=== PATIENT | male | born 1985 | race Caucasian/White ===

== ENCOUNTER 2017-03-26 11:19 | Inpatient (IN) | payer OTHER ==
[~2017-03-26] VITALS: Ht 167.6 cm; Wt 98.4 kg
--- NOTE | 2017-03-26 13:00 | NUR ---
RN MS NOTES RECEIVED PATIENT FROM HOME, ALERT AND ORIENTED X4, BREATHING EVEN AND UNLABORED, NO DISTRESS, NO COMPLAINT OF PAIN, PATIENT IS UNDER THE CARE OF DR. ZEE, ADMITTING DIAGNOSIS IS SCHIZOPRENIA, ADMISSION ORDERS RECEIVED AND CARRIED OUT, PATIENT SMOKES AND GIVEN SCHEDULE FOR SMOKING, NEEDS ATTENDED AND MET, CALL LIGHT WITHIN REACH, WILL CONTINUE TO MONITOR.
[2017-03-26] MEDS ORDERED: MAGNESIUM HYDROXIDE 30 ML UDC PO PRN (14:00)
[2017-03-26] MEDS ORDERED: IBUPROFEN 200 MG TABLET PO PRN (14:00)
[2017-03-26] MEDS ORDERED: LORAZEPAM 1 MG TABLET FOR AGITATION PO PRN (14:00)
[2017-03-26] MEDS ORDERED: MAG HYDROX/AL HYDROX/SIMETH 30 ML UDC PO PRN (14:00)
[2017-03-26] MEDS ORDERED: ZOLPIDEM TARTRATE 10 MG TABLET PO PRN (14:30)
--- NOTE | 2017-03-26 18:11 | NUR ---
RN MS NOTES PATIENT SEEN BY DR. ZEE, NO NEW ORDER AT THIS TIME, PATIENT NOT IN ANY ACUTE DISTRESS, NO COMPLAINT OF PAIN AT THIS TIME, TAKE SMOKE BREAKS AT SCHEDULED TIMES, ALL NEEDS ATTENDED AND MET, CALL LIGHT WITHIN REACH, WILL ENDORSE TO EVENT ORGANIZER FOR KIRIT.
--- NOTE | 2017-03-26 19:30 | NUR ---
MS MIGUEL NOTES RECEIVED A/O X4,AMBULATORY,ON CLINICAL STUDY FOR SCHIZOPHRENIA.CALM FOLLOW INSTRUCTIONS.WILL CONTINUE TO MONITOR BEHAVIOR.
[2017-03-26 20:00] VITALS: BP 130/81
--- NOTE | 2017-03-26 21:30 | NUR ---
MS RN NOTES WENT DOWN TO SMOKE ACCOMPANIED BY AMAN GARVIN
[2017-03-26] MEDS ORDERED: LORAZEPAM 1 MG TABLET FOR INSOMNIA PO PRN (22:00)
[2017-03-26] MEDS ORDERED: risperiDONE 1 MG TABLET PO ONE (22:00)
--- NOTE | 2017-03-26 22:00 | NUR ---
MS RN NOTES DUE PO MEDS ADMINISTERED
--- NOTE | 2017-03-27 05:52 | NUR ---
MS RN NOTES NO BEHAVIORAL PROBLEM NOTED,CALM,FOLLOW INSTRUCTION,MED COMPLIANT.WILL CONTINUE TO FOLLOW ON CLINICAL STUDY PROGRAM.WILL ENDORSE TO DAY NURSE FOR KIRIT.
--- NOTE | 2017-03-27 07:10 | NUR ---
RN MS NOTES PATIENT ALERT AND ORIENTED, CALM AND COOPERATIVE, NO DISTRESS NOR PAIN NOTED, NEEDS ATTENDED, WILL CONTINUE TO MONITOR.
[2017-03-27 08:00] VITALS: BP 124/79
[2017-03-27 16:00] VITALS: BP 121/81
--- NOTE | 2017-03-27 19:00 | NUR ---
MS RN NOTES WENT DOWN TO SMOKE WITH U/S BRISEYDA.CALM, FOLLOW COMMANDS.
--- NOTE | 2017-03-27 19:05 | NUR ---
RN MS NOTES NO S/SX OF DISTRESS NOTED, KEPT ASKING FOR SMOKE BREAKS, ENCOURAGED PATIENT TO ADHERE WITH THE SCHEDULE.
[2017-03-27 19:44] VITALS: BP 137/82
[2017-03-27 20:00] VITALS: BP 137/82
--- NOTE | 2017-03-27 21:30 | NUR ---
MS RN NOTES WENT DOWN TO SMOKE ACCOMPANIED BY AMAN GOLD
--- NOTE | 2017-03-27 22:00 | NUR ---
MS RN NOTES DUE RISPERDAL 1.5MG PO GIVEN
[2017-03-27] MEDS: risperiDONE 1 MG TABLET PO SCH (22:03)
--- NOTE | 2017-03-28 06:16 | NUR ---
MS RN NOTES NO CHANGE IN BEHAVIOR,CALM,FOLLOW COMMANDS.IN NO ACUTE DISTRESS.ENDORSE TO DAY NURSE FOR KIRIT.
[2017-03-28 08:00] VITALS: BP 121/79
--- NOTE | 2017-03-28 08:00 | NUR ---
MS RN NOTES PATIENT IN BED RESTING NO SOB OR ACUTE DISTRESS NOTED. PERIPHERAL IV INTACT. BED IN LOW LOCKED POSITION. BED IN LOW LOCKED POSITION. WILL CONTINUE TO MONITOR.
--- NOTE | 2017-03-28 10:00 | NUR ---
MS RN NOTES NOTED PATIENTS ROOM SMELLED OF MARIJUANA DR. ZEE MADE AWARE STATES TO NOTIFIED PATIENT IF LAB RESULTS TEST POSITIVE OF MARIJUANA HE WILL BE DISCHARGED FROM THE STUDY. PATIENT INFORMED. ALSO EDUCATED OF THE DANGER OF SMOKING IN A HOSPITAL. STATES HE DID NOT SMOKE. WILL CONTINUE TO MONITOR.
[2017-03-28 16:00] VITALS: BP 124/81
--- NOTE | 2017-03-28 18:00 | NUR ---
MS RN NOTES PATIENT SEEN AND EVALUATED BY DR. ZEE. ORDERS NOTED AND CARRIED OUT.
--- NOTE | 2017-03-28 19:35 | NUR ---
MS RN NOTES A/O X4,AMBULATORY,FOLLOW INSTRUCTIONS
[2017-03-28 20:00] VITALS: BP 129/90
[2017-03-28 20:20] VITALS: BP 129/90
--- NOTE | 2017-03-28 20:30 | NUR ---
MS RN NOTES WENT DOWN TO SMOKE ACCOMPANIED BY AMAN Thompson
--- NOTE | 2017-03-28 21:30 | NUR ---
MS RN NOTES WENT DOWN TO SMOKE ACCOMPANIED BY AMAN Thompson
[2017-03-28] MEDS: risperiDONE 1 MG TABLET PO SCH (22:00)
--- NOTE | 2017-03-28 22:00 | NUR ---
MS RN NOTES DUE RISPERDAL 1.5MG PO GIVEN SCHEDULED.
--- NOTE | 2017-03-28 22:16 | NUR ---
MS RN NOTES REMAINS CALM,FOLLOW INSTRUCTION.REPORT GIVEN TO ANGEL MIGUEL FOR KIRIT.
--- NOTE | 2017-03-28 22:17 | NUR ---
MS MIGUEL INITIAL NOTE PT RECEIVED IN BED, A/O X 4, NO S/S OF RESPIRATORY DISTRESS OR SOB. SAFE ENVIRONMENT PROVIDED FREE OF CLUTTERS. IV SITE INTACT WITH NO S/S OF INFILTRATION NOTED.BED IN LOCKED, LOW POSITION. CALL LIGHT WITHIN EASY REACH. WILL CONTINUE TO MONITOR. Addendum: 03/29/17 at 0642 by ANGEL MCCLOUD RN ADDENDUM: MISTAKEN ENTRY REGARDING IV SITE, NO IV SITE WAS INTACT
--- NOTE | 2017-03-29 06:45 | NUR ---
MS RN CLOSING NOTES PATIENT COMFORTABLY ASLEEP AND EASILY AWAKEN, TOLERATING ROOM AIR 02 SAT 98% R.A, NO BEHAVIORAL ISSUES NOTED. NO A/R NOTED FROM PSYCH MEDS, PATIENT SLEPT TOTAL OF 7 HOURS AT NIGHT. NO AKATHISIA, NO TREMORS, NO EPS, NO MEDICAL AND PSYCHIATRIC INSTABILITY NOTED. RESPIRATIONS EVEN AND UNLABORED. LUNG SOUNDS CLEAR UPON AUSCULTATION, NO S/S OF ACUTE DISTRESS, NO SOB, NO COUGH, NO CONGESTION, SKIN WARM AND DRY TO TOUCH, AFEBRILE, ALL NURSING CARE NEEDS PROVIDED AND RENDERED, NEEDS ATTENDED AND ANTICIPATED, KEPT CLEAN AND DRY AND COMFORTABLE,GOOD SKIN CARE PROVIDED. FREQUENT VISUAL CHECK DONE FOR SAFETY EVERY 2 HOURS. SAFE HAZARD FREE ENVIRONMENT PROVIDED. CALL LIGHT WITHIN EASY TO REACH, ON LOW BED AT ALL TIMES TO ENSURE SAFETY, WILL ENDORSE TO THE NEXT SHIFT CONTINUE PLAN OF CARE.
--- NOTE | 2017-03-29 07:36 | NUR ---
MS RN NOTES RECEIVED PATIENT IN ROOM, PERFORMING SELF HYGIENE, AMBULATORY, INDEPENDENT. APPEARS CALMS AND RESTFUL. NOT IN ANY FORM OF DISTRESS, ON ROOM AIR. NO COMPLAINTS OF DISCOMFORT/PAIN. SAFETY MEASURES RENDERED. PATIENT VERBALIZED TO BE A SMOKER AND TAKES FREQUENT SMOKE BREAKS. CALL LIGHT WITHIN EASY TO REACH. WILL CONTINUE TO MONITOR.
[2017-03-29 08:00] VITALS: BP_SYST 123; BP_SYST 125; BP_DIAS 75
--- NOTE | 2017-03-29 11:53 | NUR ---
MS/RN NOTES PATIENT TAKEN DOWN FOR A SMOKE BREAK BY LIMO DRIVER.
[2017-03-29 16:00] VITALS: BP 135/88
--- NOTE | 2017-03-29 18:12 | NUR ---
MS/RN NOTES PATIENT SITTING IN ROOM, STABLE, NOT IN ANY FORM OF DISTRESS. NO BEHAVIORAL DISTURBANCES NOTED, NO PSYCH ISSUES FOUND DURING SHIFT. PATIENT ABLE TO CARRY OUT NORMAL CONVERSATION , FREQUENTLY ASKS TO GO DOWN FOR A SMOKE BREAK. WILL ENDORSE CARE TO FENCE MAKER FOR KIRIT.
--- NOTE | 2017-03-29 19:30 | NUR ---
RN NOTES RECEIVED PT AWAKE ON BED, A/OX4, CALM AND FOLLOWS COMMANDS
[2017-03-29 20:00] VITALS: BP 140/86
[2017-03-29] MEDS: risperiDONE 1 MG TABLET PO SCH (22:09)
--- NOTE | 2017-03-30 06:36 | NUR ---
RN NOTES SLEEPING BUT AROUSABLE, CALM, AND FOLLOW INSTRUCTION, PT NEEDS ATTENDED
--- NOTE | 2017-03-30 07:42 | NUR ---
MS/RN NOTES RESTING IN BED COMFORTABLY, AWAKE AND ORIENTED X4, AMBULATORY, INDEPENDENT WITH SELF CARE. NO FORM OF DISTRESS NOTED NOTED, NO COMPLAINTS OF PAIN, ANXIETY OR DISCOMFORT AT THIS TIME. PATIENT ASKED WHEN HE CAN BE TAKEN FOR SMOKE BREAK. INSTRUCTED HIM THE SCHEDULED TIMES OF SMOKE BREAK. SAFETY MEASURES TAKEN. WILL CONTINUE TO MONITOR.
[2017-03-30 08:00] VITALS: BP 112/76
--- NOTE | 2017-03-30 11:45 | NUR ---
MS/RN NOTES PATIENT WAS TAKEN DOWN FOR SMOKE BREAK
--- NOTE | 2017-03-30 18:48 | NUR ---
MS/RN NOTES PATIENT STABLE, NO CHANGES IN CONDITION OR BEHAVIOR. COMPLIANT HOWEVER FREQUENTLY ASKS TO GO FOR SMOKE BREAK AND PACES THROUGH THE [address]. NO PSYCH ISSUES FOUND DURING SHIFT, ABLE TO CARRY NORMAL CONVERSATION. WILL ENDORSE CARE TO CORNER BRACE BLOCK MACHINE OPERATOR FOR KIRIT
--- NOTE | 2017-03-30 19:30 | NUR ---
MS RN INITIAL NOTE PT IS STABLE AND COMFORTABLE, NO COMPLAINT OF PAIN OR RESPIRATORY DISTRESS NOTED DURING PHYSICAL ASSESSMENT, WILL MONITOR AND ATTEND TO NEEDS PROMPTLY.
[2017-03-30] MEDS: risperiDONE 1 MG TABLET PO SCH (22:07)
[2017-03-30 22:28] VITALS: BP 125/78
--- NOTE | 2017-03-31 06:20 | NUR ---
MS RN CLOSING NOTE PT REMAINED STABLE DURING PIPEFITTER, NO SIGNIFICANT CHANGE IN CONDITION NOTED, WILL ENDORSE TO INCOMING NURSE FOR KIRIT.
--- NOTE | 2017-03-31 07:23 | NUR ---
MS RN OPENING RECEIVED PATIENT A/OX4 DENIES PAIN, SOB, DIFFICULTY BREATHING. CALL LIGHT IN REACH, BED LOWERED AND LOCKED, ALL NEEDS MET. WILL ROUND Q2H OR LESS PER NEEDS.
[2017-03-31 08:00] VITALS: BP 111/73
[2017-03-31 08:11] VITALS: BP 111/73
[2017-03-31 16:00] VITALS: BP 127/79
--- NOTE | 2017-03-31 19:10 | NUR ---
MS RN CLOSING PATIENT STABLE NO COMPLICATIONS NO CHANGES. ALL NEEDS MET. CARE ENDORSED TO RN FOR KIRIT
--- NOTE | 2017-03-31 19:30 | NUR ---
MS RN INITIAL NOTE RECEIVED PT AWAKE AND ALERT, ORIENTED X4, NO COMPLAINT OF PAIN OR ANY RESPIRATORY DISTRESS NOTED DURING PHYSICAL ASSESSMENT, PT IS AMBULATORY WITH A STEADY GAIT, SAFETY MEASURES WILL BE KEPT AT ALL TIMES, AND NEEDS WILL BE ATTENDED TO PROMPTLY.
[2017-03-31 20:00] VITALS: BP 150/87
--- NOTE | 2017-04-01 07:25 | NUR ---
MS RN CLOSING NOTE PT REMAINED STABLE, NO SIGNIFICANT CHANGE IN CONDITION NOTED DURING NIGHT, WILL ENDORSE TO INCOMING NURSE FOR KIRIT.
[2017-04-01 08:00] VITALS: BP_SYST 114; BP_SYST 121; BP_DIAS 65; BP_DIAS 77
--- NOTE | 2017-04-01 08:00 | NUR ---
AM RN NOTE Received patient awake, A/O X4 verbally responsive able to make needs known. Denies any pain or discomfort at this time. Will continue to monitor.
[2017-04-01] MEDS: INVEST MED MK-8189 MISC 1 CAP EA PO SCH ×2 (10:00→10:45)
[2017-04-01] MEDS: INVEST MED MK-8189 MISC 1 TAB EA PO SCH ×2 (10:00→10:45)
--- NOTE | 2017-04-01 10:06 | NUR ---
AM RN NOTE Investigational medication not administer today because pt received dose in clinic already per Bebe Pharmacist.
--- NOTE | 2017-04-01 10:46 | NUR ---
AM RN NOTE Medication brought from Dr. Javier office and given to patient.
[2017-04-01] MEDS ORDERED: LORAZEPAM 1 MG TABLET FOR AGITATION PO PRN (12:00)
--- NOTE | 2017-04-01 18:38 | NUR ---
AM RN NOTE Patient complaint with medication, no acute distress noted. Will endorse care to next shift.
--- NOTE | 2017-04-01 19:50 | NUR ---
MS RN NOTE: PATIENT RESTING IN BED, NO ACUTE DISTRESS NOTED. BREATHING EVEN AND UNLABORED, NO SOB NOTED. PATIENT CALM AND COOPERATIVE. BED LOCKED AND IN LOWEST POSITION, CALL LIGHT IN REACH. WILL CONTINUE TO MONITOR.
[2017-04-01 20:10] VITALS: BP 131/70
--- NOTE | 2017-04-01 21:30 | NUR ---
MS RN NOTE: PATIENT REQUEST FOR ATIVAN TO HELP SLEEP. ATIVAN 1MG ORAL GIVEN PER MD ORDER. WILL CONTINUE TO MONITOR.
[2017-04-01] MEDS ORDERED: LORAZEPAM 1 MG TABLET FOR INSOMNIA PO PRN (22:00)
--- NOTE | 2017-04-02 06:44 | NUR ---
MS RN NOTE: PATIENT RESTING IN BED, NO ACUTE DISTRESS NOTED. BREATHING EVEN AND UNLABORED, NO SOB NOTED. PATIENT CALM AND COOPERATIVE. PATIENT SLEPT AT LEAST 7 HOURS. BED LOCKED AND IN LOWEST POSITION, CALL LIGHT IN REACH. WILL ENDORSE TO DAY NURSE TO CONTINUE WITH PLAN OF CARE.
[2017-04-02 08:00] VITALS: BP 109/69
--- NOTE | 2017-04-02 08:45 | NUR ---
MS RN NOTES CALLED PHARMACY TO HAVE MEDICATIONS BROUGHT UP FOR PATIENT
--- NOTE | 2017-04-02 09:20 | NUR ---
MS RN NOTES 2ND CALL TO PHARMACY TO BRING MEDICATION FOR PATIENT
--- NOTE | 2017-04-02 09:51 | NUR ---
MS RN NOTES 3RD CALL TO PHARMACY TO BRING MEDICATION FOR PATIENT
[2017-04-02] MEDS: INVEST MED MK-8189 MISC 1 TAB EA PO SCH (09:57)
[2017-04-02] MEDS: INVEST MED MK-8189 MISC 1 CAP EA PO SCH (09:57)
[2017-04-02 10:00] VITALS: BP 109/69
[2017-04-02 16:00] VITALS: BP 127/75
--- NOTE | 2017-04-02 18:42 | NUR ---
MS RN CLOSING PATIENT STABLE NO COMPLICATIONS NO CHANGES. ALL DUE MEDS GIVEN AND ALL NEEDS MET. CARE WILL BE ENDORSED TO LAMONT SEARS FOR KIRIT.
--- NOTE | 2017-04-02 19:36 | NUR ---
RN NOTE; RECEIVED PT IN BED AWAKE AND ALERT. BREATHING EVENLY. NO SOB. NAD. NO BEHAVIORAL ISSUES. CALL LIGHT WITHIN REACH. WILL CONT TO MONITOR
[2017-04-02 20:00] VITALS: BP_SYST 121; BP_SYST 131; BP_DIAS 68
--- NOTE | 2017-04-03 06:21 | NUR ---
RN NOTE; PT IN BED SLEEPING, AROUSES EASILY. BREATHING EVENLY. NO ACUTE EVENT DURING THE NIGHT. TRIAL MED TOLERATED WELL. W/ NO COMPLICATIONS OR A/R. NO BEHAVIORAL OR PSYCH ISSUES DURING THE NIGHT. HAD A GOOD NIGHT SLEEP W/ NO C/O DISCOMFORT. WILL CONT TO MONITOR AND WILL ENDORSE TO AM SHIFT FOR KIRIT.
[2017-04-03 08:00] VITALS: BP 100/54
[2017-04-03 08:09] VITALS: BP 100/54
[2017-04-03] MEDS: INVEST MED MK-8189 MISC 1 TAB EA PO SCH (09:40)
[2017-04-03] MEDS: INVEST MED MK-8189 MISC 1 CAP EA PO SCH (09:40)
[2017-04-03 16:00] VITALS: BP 128/72
--- NOTE | 2017-04-03 19:01 | NUR ---
MS RN CLOSING PATIENT STABLE NO COMPLICATIONS NO CHANGES. ALL DUE MEDS GIVEN AND ALL NEEDS MET. CARE WILL BE ENDORSED TO LAMONT SEARS FOR KIRIT.
[2017-04-03 20:00] VITALS: BP 135/75
--- NOTE | 2017-04-03 20:00 | NUR ---
PATIENT UP ON THE CHAIR, ALERT AND ORIENTED X4, INTERACTING WITH ROOM MATE, NO SOB, DENIES ANY PAIN AT THIS TIME, DENIES SUICIDAL IDEATION, EATING, AWARE OF SMOKING SCHEDULE, KEPT SAFE AND COMFORTABLE, CALL LIGHT WITHIN REACH.
[2017-04-03 22:00] VITALS: BP 135/75
--- NOTE | 2017-04-04 06:51 | NUR ---
PATIENT IN BED, ALERT AND AWAKE, NO SOB, NO RESPIRATORY DISTRESS, NO COMPLAIN OF PAIN, NO BEHAVIOR DISTURBANCE DURING SHIFT, SLEPT FOR 8 HOURS, KEPT SAFE AND COMFORTABLE, CALL LIGHT WITHIN REACH.
[2017-04-04 08:00] VITALS: BP 114/63
--- NOTE | 2017-04-04 08:00 | NUR ---
RN OPENING NOTES RECEIVED PATIENT ON BED, SLEEPING. RESPIRATIONS EVEN AND UNLABORED. NO ACUTE DISTRESS NOTED. BED IN LOWEST POSITION, CALL LIGHT WITHIN REACH. WILL CONTINUE TO MONITOR.
[2017-04-04] MEDS: INVEST MED MK-8189 MISC 2 CAP EA PO SCH (09:47)
[2017-04-04] MEDS: INVEST MED MK-8189 MISC 2 TAB EA PO SCH (09:47)
--- NOTE | 2017-04-04 11:20 | NUR ---
PT INSISTED TO GO OUTSIDE WITH FAMILY AND STATED THAT DR ZEE ALLOWED THEM TO HANG OUT WITH THE FAMILY AND EVEN SMOKE WITH THE FAMILY OUTSIDE AND STATED THAT DR ZEE STATED FOR THE HOSPITAL STAFF TO CALL HIM FOR ANY QUESTIONS.INSTRUCTED THEM TO WAIT TILL I CLARIFY WITH DR ZEE BUT THE PT ALREADY LEFT WITH ANOTHER CLINICAL TRIAL ROOMATE, [address]ED [address] ZEE OFFICE AND SPOKE TO LEONEL,DIRECTOR OF DR ZEE OFFICE AND STATED THAT IT'S OK ACCORDING TO DR ZEE.QUESTIONED LEONEL ASKING WHAT IF THE PT TAKES MEDICATIONS OR DRUGS FROM OUTSIDE BROUGHT IN BY FAMILY,LEONEL STATED THAT IT'S OK WITH DR ZEE TO HAVE THE PT HANG OUT WITH THE FAMILY OUTSIDE EVEN IF THEY DROVE OUT TO GO TO [place] [facility] THEY ARE ACCOMPANIED BY THE FAMILY.QUESTIONED LEONEL IF THE PT CAN SMOKE WITH THE FAMILY OUTSIDE.LEONEL STATED THAT SHE WILL CLARIFY WITH DR ZEE ABOUT THE SMOKING. Addendum: 04/04/17 at 1341 by STEPHANIE MORA RN PT LEFT WITH HIS ROOMATE 308-[address]RI[address] MATT AND NOT [address] LEONG TO GO OUTSIDE AND WENT INSIDE THE CAR WITH HIS FRIENDS/FAMILY.SECURITY CALLED AND REPORTED TO US.
--- NOTE | 2017-04-04 11:50 | NUR ---
PT CAME BACK FROM HANGING OUTSIDE WITH FAMILY AND FRIENDS
--- NOTE | 2017-04-04 13:53 | NUR ---
PT INSISTS TO GO OUT TO SMOKE EVEN IF INSTRUCTED THAT THEY NEED TO FOLLOW THE SMOKING REGULATIONS TIME SINCE OUR MANAGER APPOINTMENT IS TAKING HER BREAK.PT INSISTS THAT DR ZEE TOLD THEM "IT'S OK TO SMOKE WITHOUT BEING ACCOMPANIED BY THE MANAGER APPOINTMENT ACCORDING TO DR ZEE"PAGED DR ZEE.AWAITING TO RETURN CALL
--- NOTE | 2017-04-04 13:58 | NUR ---
PT WENT OUT TO SMOKE WITH FAMILY OUTSIDE INSPITE OF TELLING HIM TO WAIT TILL CLARIFIED WITH DR ZEE.
--- NOTE | 2017-04-04 15:04 | NUR ---
CHECKED ON PT IN HIS ROOM AND HE'S LYING IN BED AND INSTRUCTED HIM THAT I SPOKE TO LEONEL AND EXPLAINED THE HOSPITAL REGULATIONS.PT STATED THAT HE ALREADY SPOKE TO LEONEL AWHILE AGO AND IS AWARE OF IT.LEONEL,DIRECTOR OF DR ZEE'S OFFICE STATED THAT SHE DOESN'T KNOW THE HOSPITAL REGULATIONS.
[2017-04-04 16:00] VITALS: BP 143/78
--- NOTE | 2017-04-04 18:33 | NUR ---
RN CLOSING NOTES PATIENT ON BED RESTING, AWAKE AND ALERT. RESPIRATIONS EVEN AND UNLABORED. NO ACUTE DISTRESS NOTED. NO CHANGE OF CONDITION. ALL NEEDS ATTENDED AND PROVIDED. CALL LIGHT WITHIN REACH. WILL ENDORSE TO FLAGSTONE LAYER RN FOR CONTINUITY OF CARE.
--- NOTE | 2017-04-04 19:30 | NUR ---
MSRN FULLY AWAKE, PATIENT ON THE PHONE, NO NEEDS MADE FOR NOW. TO CONTINUE.
[2017-04-04 20:00] VITALS: BP 141/80
--- NOTE | 2017-04-04 21:30 | NUR ---
MSRN WENT FOR SMOKE WITH ROOMATE AND APPLICATION ARCHITECT. BEHAVIOR ACCEPTABLE.
[2017-04-04 22:48] VITALS: BP 141/80
--- NOTE | 2017-04-04 23:00 | NUR ---
MSRN SEEN ASLEEP, APPEARS COMFORTABLE.
[2017-04-05 08:00] VITALS: BP 107/65
--- NOTE | 2017-04-05 08:03 | NUR ---
RN OPENING NOTES RECEIVED PATIENT ON BED AWAKE ASKING FOR BREAKFAST. BREAKFAST TRAY GIVEN. NO ACUTE DISTRESS, NO SOB. BED IN LOWEST POSITION, CALL LIGHT IN REACH. WILL CONTINUE TO MONITOR
[2017-04-05] MEDS: INVEST MED MK-8189 MISC 2 TAB EA PO SCH (09:15)
[2017-04-05] MEDS: INVEST MED MK-8189 MISC 2 CAP EA PO SCH (09:15)
[2017-04-05 16:00] VITALS: BP 121/70
--- NOTE | 2017-04-05 19:15 | NUR ---
RN CLOSING NOTES PATIENT ON BED RESTING. NO ACUTE DISTRESS NOTED. NO CHANGE OF CONDITION. ALL NEEDS ATTENDED AND PROVIDED. KEPT PATIENT SAFE. BED IN LOWEST POSITION, CALL LIGHT WITHIN REACH. ENDORSED TO HEARTH FEEDER RN FOR CONTINUITY OF CARE.
[2017-04-05 20:00] VITALS: BP 128/76
--- NOTE | 2017-04-05 20:00 | NUR ---
PATIENT IN BED, WATCHING TV, NO SOB, CALM, NO DISTRESS, DENIES ANY PAIN AT THIS TIME, HEARING VOICES, TRYING TO IGNORE THEM, AT TIMES VOICES ARE TELLING HIM BAD THINGS, PATIENT DECLINED TO ELABORATE. KEPT SAFE AND COMFORTABLE, CALL LIGHT WITHIN REACH.
--- NOTE | 2017-04-06 07:05 | NUR ---
PATIENT IS ALERT AND AWAKE, NO SOB, NO RESPIRATORY DISTRESS, NO BEHAVIOR DISTURBANCE DURING SHIFT, SLEPT FOR 8.5 HOURS, NEEDS ATTENDED, CALL LIGHT WITHIN REACH.
--- NOTE | 2017-04-06 07:26 | NUR ---
MS RN OPENING RECEIVED PATIENT A/OX4 AWAKE DENIES SOB, DIFFICULTY BREATHING OR PAIN. PATIENT STATES NO NEEDS AT THIS TIME. CALL LIGHT IN REACH, BED LOWERED AND LOCKED, RAILS UPX3 FOR SAFETY AND WILL ROUND Q2H OR LESS PER NEEDS.
[2017-04-06 08:00] VITALS: BP 123/86
[2017-04-06] MEDS: INVEST MED MK-8189 MISC 2 CAP EA PO SCH (09:10)
[2017-04-06] MEDS: INVEST MED MK-8189 MISC 2 TAB EA PO SCH (09:10)
[2017-04-06 15:58] VITALS: BP 126/71
[2017-04-06 16:00] VITALS: BP 126/71
--- NOTE | 2017-04-06 18:33 | NUR ---
MS RN CLOSING PATIENT STABLE NO COMPLICATIONS NO CHANGES. ALL DUE MEDS GIVEN AND ALL NEEDS MET. CARE WILL BE ENDORSED TO LAMONT SEARS FOR KIRIT.
[2017-04-06 20:00] VITALS: BP 128/77
--- NOTE | 2017-04-07 06:37 | NUR ---
MS RN NOTES AWAKE & RESPONSIVE. NOT IN ANY DISTRESS. NO SOB NOTED. DENIES ANY PAIN OR DISCOMFORT AT THIS TIME. MONITORED ACCORDINGLY. 8 HRS OF SLEEP. CALL LIGHT WITHIN REACH. BED IN LOWEST POSITION. SR UP X 2 FOR SAFETY. WILL ENDORSE TO NEXT SHIFT.
[2017-04-07 08:00] VITALS: BP_SYST 114; BP_SYST 118; BP_DIAS 74
[2017-04-07] MEDS: INVEST MED MK-8189 MISC 3 TAB EA PO SCH (09:38)
[2017-04-07] MEDS: INVEST MED MK-8189 MISC 3 CAP EA PO SCH (09:38)
[2017-04-07 16:00] VITALS: BP 116/69
[2017-04-07] MEDS: ACETAMINOPHEN ES 500 MG TABLET PO PRN (18:15)
--- NOTE | 2017-04-07 18:29 | NUR ---
MS RN CLOSING PATIENT STABLE NO COMPLICATIONS NO CHANGES. ALL DUE MEDS GIVEN AND ALL NEEDS MET. CARE WILL BE ENDORSED TO LAMONT SEARS FOR KIRIT.
--- NOTE | 2017-04-07 19:45 | NUR ---
MS RN OPENING NOTES: PATIENT CAME FROM SMOKE BREAK, AOX4, AMBULATORY, APPEARS CALM AND IN NO DISTRESS. DENIES ANY PAIN AT THIS TIME. PROVIDED FOR COMFORT AND SAFETY. WILL CONT TO MONITOR.
[2017-04-07 20:00] VITALS: BP 119/70
--- NOTE | 2017-04-08 06:35 | NUR ---
MS RN CLOSING NOTES: PATIENT IN BED, AOX4, ON ROOM AIR, BREATHING EVEN AND UNLABORED. APPEARS CALM AND IN NO DISTRESS. NO VERBALIZATION OF PARANOID, ERRATIC THOUGHTS NOTED FROM PATIENT THROUGH SHIFT. WAS ABLE TO SLEEP FOR 7 HOURS THIS NIGHT. PROVIDED FOR COMFORT AND SAFETY. WILL ENDORSE TO AM RN FOR KIRIT.
--- NOTE | 2017-04-08 07:14 | NUR ---
MS RN OPENING NOTES: PATIENT RECEIVED AWAKE IN BED IN NO ACUTE SIGNS OF DISTRESS. ALERT AND ORIENTED X4, NO C/O PAIN OR DISCOMFORTS VOICED AT THIS TIME. ON ROOM AIR, BREATHING EVEN AND UNLABORED. CALL LIGHT WITHIN REACH. BED LOW AND LOCKED FOR SAFETY. WILL CONTINUE TO MONITOR ACCORDINGLY.
[2017-04-08 08:00] VITALS: BP 115/66
--- NOTE | 2017-04-08 08:31 | NUR ---
RN NOTES PATIENT WENT TO SMOKE WITH FOOD SERVICE REPRESENTATIVE.
[2017-04-08] MEDS: INVEST MED MK-8189 MISC 3 TAB EA PO SCH (08:59)
[2017-04-08] MEDS: INVEST MED MK-8189 MISC 3 CAP EA PO SCH (08:59)
[2017-04-08 16:00] VITALS: BP_SYST 126; BP_SYST 128; BP_DIAS 85
--- NOTE | 2017-04-08 18:44 | NUR ---
MS RN CLOSING NOTES: PATIENT RESTING IN BED ALERT AND ORIENTED X4, NO SIGNIFICANT CHANGES NOTED THROUGHOUT THE DAY. AMBULATORY AND ABLE TO MAKE NEEDS KNOWN. SMOKES AT SCHEDULED TIMES. ON ROOM AIR, BREATHING EVEN AND UNLABORED. CALL LIGHT WITHIN REACH. BED LOW AND LOCKED FOR SAFETY. ALL NEEDS AND CARE ATTENDED WELL. WILL ENDORSED TO MAKEUP SALES ADVISOR FOR CONTINUITY OF CARE.
--- NOTE | 2017-04-08 19:30 | NUR ---
RN NOTE; RECEIVED PT IN BED AWAKE AND ALERT. BREATHING EVENLY. NO DISTRESS. DENIED ANY DISCOMFORT. TRIAL MEDICATION CAITLYN WELL. WILL CONT TO MONITOR.
[2017-04-08 20:00] VITALS: BP 110/56
[2017-04-08 20:19] VITALS: BP 110/56
--- NOTE | 2017-04-09 06:19 | NUR ---
RN NOTE; PT IN BED SLEEPING, AROUSES EASILY. BREATHING EVENLY. NO SOB. NAD. NO ACUTE CHANGES OVER THE NIGHT . NO BEHAVIORAL OR PSYCH ISSUES NOTED. NO PRN MED GIVEN. SLEPT WELL DURING THE NIGHT. CALL LIGHT WITHIN REACH. WILL CONT TO MONITOR AND WILL ENDORSE TO AM SHIFT FOR KIRIT.
[2017-04-09 08:00] VITALS: BP 128/84
[2017-04-09] MEDS: INVEST MED MK-8189 MISC 3 CAP EA PO SCH (08:43)
[2017-04-09] MEDS: INVEST MED MK-8189 MISC 3 TAB EA PO SCH (08:43)
[2017-04-09 16:00] VITALS: BP 126/78
--- NOTE | 2017-04-09 18:34 | NUR ---
MS RN CLOSING PATIENT STABLE NO COMPLICATIONS NO CHANGES. ALL DUE MEDS GIVEN AND ALL NEEDS MET. CARE WILL BE ENDORSED TO LAMONT SEARS FOR KIRIT.
--- NOTE | 2017-04-09 19:20 | NUR ---
RN NOTE; PT AWAKE AND AMBULATORY IN THE HALLWAY. BREATHING EVENLY . NO SOB. NO DISTRESS. NO PSYCH OR BEHAVIORAL ISSUES. WILL CONT TO MONITOR.
[2017-04-09] MEDS: LORAZEPAM 1 MG TABLET FOR AGITATION PO PRN (19:57)
--- NOTE | 2017-04-09 19:58 | NUR ---
ATIVAN 1MG GIVEN PER PT'S REQUEST FOR C/O ANXIETY .WILL CONT TO MONITOR
[2017-04-09 20:00] VITALS: BP 130/86
--- NOTE | 2017-04-10 06:53 | NUR ---
RN NOTE; PT IN BED SLEEPING, BREATHING EVENLY. NO SOB. NAD. NO PSYCH OR BEHAVIORAL ISSUES DURING THE NIGHT . REMAINED STABLE. ASSISTED W/ ADLS. CALL LIGHT WITHIN REACH. WILL CONT TO MONITOR.
[2017-04-10 08:00] VITALS: BP 111/63
[2017-04-10 08:05] VITALS: BP 111/63
[2017-04-10] MEDS: INVEST MED MK-8189 MISC 3 CAP EA PO SCH (09:49)
[2017-04-10] MEDS: INVEST MED MK-8189 MISC 3 TAB EA PO SCH (09:49)
[2017-04-10 16:00] VITALS: BP 130/74
--- NOTE | 2017-04-10 18:31 | NUR ---
MS RN CLOSING PATIENT STABLE NO COMPLICATIONS NO CHANGES. ALL DUE MEDS GIVEN AND ALL NEEDS MET. CARE WILL BE ENDORSED TO FOR KIRIT.
--- NOTE | 2017-04-10 19:30 | NUR ---
MSRN SEEN BY DR. ZEE, NO FURTHER ORDERS. WENT OUT FOR SMOKE WITH ELECTRICAL APPLIANCE PREPARER.
[2017-04-10 20:00] VITALS: BP 118/80
[2017-04-10] MEDS: LORAZEPAM 1 MG TABLET FOR INSOMNIA PO PRN (20:55)
--- NOTE | 2017-04-10 20:57 | NUR ---
MSRN REQUESTED FOR ATIVAN 1MG, ADMINISTERED. SAFETY PRECAUTIONS EMPHASIZED, APPEARS TO UNDERSTAND. BEHAVIOR ACCEPTABLE, COOPERATIVE.
--- NOTE | 2017-04-10 23:00 | NUR ---
MSRN REQUESTED FOR TYLENOL FOR HIS BACK PAIN WITH RELIEF.
[2017-04-10] MEDS: ACETAMINOPHEN ES 500 MG TABLET PO PRN (23:05)
--- NOTE | 2017-04-11 07:00 | NUR ---
MSRN HOURS OF SLEEP 7 HRS.
--- NOTE | 2017-04-11 07:30 | NUR ---
RN NOTES PATIENT AWAKE,ALERT AND VERBALLY RESPONSIVE ABLE TO MAKE NEEDS KNOWN, RESPIRATIONS EVEN AND UNLABORED, IN NO APPARENT PAIN OR DISCOMFORT. PATIENT KEPT CLEAN DRY AND COMFORTABLE, NO IV SITE, OKAY PER MD. WILL CONTINUE TO MONITOR AND CONTINUE CURRENT TREATMENT ORDERED. CALL LIGHT WITHIN EASY REACH, WILL CONTINUE TO MONITOR
[2017-04-11 08:00] VITALS: BP 93/59
[2017-04-11] MEDS: INVEST MED MK-8189 MISC 3 CAP EA PO SCH (09:38)
[2017-04-11] MEDS: INVEST MED MK-8189 MISC 3 TAB EA PO SCH (09:38)
[2017-04-11 16:00] VITALS: BP 123/71
[2017-04-11] MEDS: LORAZEPAM 1 MG TABLET FOR AGITATION PO PRN (17:22)
[2017-04-11 20:00] VITALS: BP 113/66
--- NOTE | 2017-04-12 03:00 | NUR ---
MS RN NOTE: PATIENT SLEEPING, NO ACUTE DISTRESS NOTED. BREATHING EVEN AND UNLABORED, NO SOB NOTED. BED LOCKED AND IN LOWEST POSITION, CALL LIGHT IN REACH, WILL CONTINUE TO MONITOR.
--- NOTE | 2017-04-12 06:15 | NUR ---
MS RN NOTE: PATIENT RESTING IN BED, NO ACUTE DISTRESS NOTED. BREATHING EVEN AND UNLABORED, NO SOB NOTED. PATIENT CALM AND COOPERATIVE. PATIENT SLEPT AT LEAST 8 HOURS. BED LOCKED AND IN LOWEST POSITION, CALL LIGHT IN REACH. WILL ENDORSE TO DAY NURSE TO CONTINUE WITH PLAN OF CARE.
--- NOTE | 2017-04-12 07:19 | NUR ---
MS RN NOTES: PATIENT RECEIVED AWAKE IN BED IN NO ACUTE SIGNS OF DISTRESS. ALERT AND ORIENTED X4, NO C/O PAIN OR DISCOMFORTS VOICED AT THIS TIME. ON ROOM AIR, BREATHING EVEN AND UNLABORED. BED LOCKED AND IN LOWEST POSITION, CALL LIGHT WITHIN REACH. WILL CONTINUE TO MONITOR ACCORDINGLY.
[2017-04-12 08:00] VITALS: BP_SYST 112; BP_SYST 126; BP_SYST 67; BP_DIAS 67; BP_DIAS 83
[2017-04-12] MEDS: INVEST MED MK-8189 MISC 3 CAP EA PO SCH (08:53)
[2017-04-12] MEDS: INVEST MED MK-8189 MISC 3 TAB EA PO SCH (08:53)
[2017-04-12 16:00] VITALS: BP 100/54
[2017-04-12 16:10] VITALS: BP 100/54
--- NOTE | 2017-04-12 19:26 | NUR ---
MS RN CLOSING NOTES: PATIENT IN BED AWAKE, ALERT AND ORIENTED X4, NO SIGNIFICANT CHANGES NOTED THROUGHOUT THE DAY. ON ROOM AIR, BREATHING EVEN AND UNLABORED WITH NO SOB NOTED. ALL NEEDS AND CARE ATTENDED WELL. BED LOCKED AND IN LOWEST POSITION, CALL LIGHT WITHIN REACH. ENDORSED TO HAND PRINTED CIRCUIT BOARD ASSEMBLER NURSE FOR KIRIT.
--- NOTE | 2017-04-12 19:30 | NUR ---
MS RN NOTES RECEIVED A/O X4,CALM AND FOLLOW INSTRUCTIONS.WILL CONTINUE TO MONITOR BEHAVIOR
[2017-04-12 20:00] VITALS: BP 137/72
--- NOTE | 2017-04-12 20:30 | NUR ---
MS RN NOTES WENT DOWN TO SMOKE ACCOMPANIED BY AMAN ESCOTO
[2017-04-12] MEDS: LORAZEPAM 1 MG TABLET FOR INSOMNIA PO PRN (21:29)
--- NOTE | 2017-04-12 21:29 | NUR ---
MS RN NOTES MEDICATED WITH ATIVAN 1MG PO PER PATIENT REQUEST
--- NOTE | 2017-04-12 21:35 | NUR ---
MS RN NOTES WENT DOWN TO SMOKE FOR THE LAST TIME AT NIGHT,ACCOMPANIED BY AMAN ESCOTO.
[2017-04-12 22:00] VITALS: BP 137/72
--- NOTE | 2017-04-13 06:39 | NUR ---
MS RN NOTES NO SIGNIFICANT CHANGE IN STATUS.FOLLOW INSTRUCTIONS.CALM,SLEPT ABOUT 6-7 HOURS AT NIGHT.WILL ENDORSE TO DAY NURSE FOR KIRIT
--- NOTE | 2017-04-13 07:17 | NUR ---
MS RN NOTES: PATIENT RECEIVED IN BED AWAKE, ALERT AND ORIENTED X4, NO C/O PAIN OR DISCOMFORTS VOICED AT THIS TIME. ON ROOM AIR, BREATHING EVEN AND UNLABORED. BED LOCKED AND IN LOWEST POSITION, CALL LIGHT WITHIN REACH. WILL CONTINUE TO MONITOR ACCORDINGLY.
[2017-04-13 08:00] VITALS: BP 98/50
--- NOTE | 2017-04-13 08:41 | NUR ---
RN NOTES PATIENT WENT TO SMOKE OUTSIDE ACCOMPANIED BY RN ADVICE. WILL CONTINUE TO MONITOR.
[2017-04-13] MEDS: INVEST MED MK-8189 MISC 3 TAB EA PO SCH (09:21)
[2017-04-13] MEDS: INVEST MED MK-8189 MISC 3 CAP EA PO SCH (09:21)
[2017-04-13 16:00] VITALS: BP 119/77
[2017-04-13] MEDS: LORAZEPAM 1 MG TABLET FOR AGITATION PO PRN (18:24)
--- NOTE | 2017-04-13 18:25 | NUR ---
RN NOTES PATIENT REQUESTED ATIVAN 1MG FOR AGITATION. WILL CONTINUE TO MONITOR
--- NOTE | 2017-04-13 18:52 | NUR ---
MS RN CLOSING NOTES: PATIENT RESTING IN BED ALERT AND ORIENTED X4, NO SIGNIFICANT CHANGES IN STATUS NOTED. ALL NEEDS AND CARE ATTENDED WELL. ON ROOM AIR, BREATHING EVEN AND UNLABORED WITH NO SOB NOTED. BED LOCKED AND IN LOWEST POSITION, CALL LIGHT WITHIN REACH. WILL ENDORSED TO INFANTRY ASSAULTMAN NURSE FOR KIRIT.
--- NOTE | 2017-04-13 19:30 | NUR ---
RN NOTE, PT IN BED RESTING. BREATHING EVENLY. DENIED ANY DISCOMFORT. NO PSYCH OR BEHAVIORAL ISSUES. NEEDS ATTENDED. CALL LIGHT WITHIN REACH. WILL CONT TO MONITOR.
[2017-04-13 20:00] VITALS: BP 136/86
[2017-04-13 22:19] VITALS: BP 136/85
--- NOTE | 2017-04-14 06:27 | NUR ---
RN NOTE; PT IN BED SLEEPING AROUSES EASILY. BREATHING EVENLY. NO ACUTE CHANGES OVER THE NIGHT. INVESTIGATION MEDICATION CAITLYN WELL. NO PRN MED GIVEN . W/ SUFFICIENT SLEEP HOURS. NEEDS ATTENDED. CALL LIGHT WITHIN REACH. WILL CONT TO MONITOR AND WILL ENDORSE TO AM SHIFT FOR K[facility]IT
[2017-04-14 08:00] VITALS: BP 108/62
[2017-04-14] MEDS: INVEST MED MK-8189 MISC 3 CAP EA PO SCH (09:51)
[2017-04-14] MEDS: INVEST MED MK-8189 MISC 3 TAB EA PO SCH (09:51)
[2017-04-14 16:00] VITALS: BP 103/62
--- NOTE | 2017-04-14 19:00 | NUR ---
MS RN CLOSING PATIENT STABLE NO COMPLICATIONS NO CHANGES. CARE ENDORSED TO RN FOR KIRIT
--- NOTE | 2017-04-14 19:13 | NUR ---
MS RN NOTES RECEIVED ON BED AWAKE,A/O X4,AMBULATORY,WENT DOWN TO SMOKE ACCOMPANIED BY AMAN BROWN.FOLLOW INSTRUCTION.WILL CONTINUE TO MONITOR BEHAVIOR.
[2017-04-14 20:02] VITALS: BP 115/65
[2017-04-14 20:03] VITALS: BP 115/65
--- NOTE | 2017-04-14 20:30 | NUR ---
MS RN NOTES WENT DOWN TO SMOKE ACCOMPANIED BY AMAN CARBAJAL
--- NOTE | 2017-04-14 21:30 | NUR ---
MS RN NOTES WENT DOWN TO SMOKE ACCOMPANIED BY AMAN CARBAJAL
--- NOTE | 2017-04-15 06:05 | NUR ---
MS RN NOTES NO AGITATION NOTED,SLEPT 7-8 HOURS AT NIGHT.FOLLOW INSTRUCTION.WILL CONTINUE WITH CLINICAL STUDY PROTOCOL.WILL ENDORSE TO DAY NURSE FOR K[facility]IT.
[2017-04-15 08:00] VITALS: BP 119/75
[2017-04-15] MEDS: INVEST MED MK-8189 MISC 3 CAP EA PO SCH (08:27)
[2017-04-15] MEDS: INVEST MED MK-8189 MISC 3 TAB EA PO SCH (08:27)
[2017-04-15 09:00] VITALS: BP 119/75
--- NOTE | 2017-04-15 12:00 | NUR ---
MS RN NOTES PATIENT BECOMING MORE ROWDY, MULTIPLE TIMES ASKED TO LOWER VOICE HE AND ROOMATE ARE ALMOST YELLING AT TIMES IN ROOM. THEY STATED UNDERSTANDING. WILL MONITOR AND SPEAK WITH NEEDED. MD ZEE IS AWARE OF PATIENTS BEHAVIOR.
--- NOTE | 2017-04-15 14:30 | NUR ---
MS RN NOTES KEYBOARDING CLERK A NICE GESTURE TOOK PATIENTS DOWN TO SMOKE AT THIS TIME. THEY WERE TOLD 15 MINUTES MAX AND NEED TO BE BACK UP
--- NOTE | 2017-04-15 15:25 | NUR ---
MS RN NOTES PATIENT JUST RETURNED FROM SMOKING. PER CONTINUOUS MINING MACHINE LODE MINER HE IS NOT LISTENING TO HER WHEN SHE TELLS TO COME UP. NOTIFIED PATIENT IS THIS NOT ACCEPTABLE AND WE HAVE TIME LIMITS. IF HAPPENS AGAIN WE WILL NOTIFY MD.
[2017-04-15 16:00] VITALS: BP 127/79
--- NOTE | 2017-04-15 18:30 | NUR ---
MS RN NOTES PATIENT AWARE ON NPO STATUS. OK WATER PER MD NO FOOD UNTIL LAB DRAW IN AM
--- NOTE | 2017-04-15 18:46 | NUR ---
MS RN CLOSING PATIENT STABLE NO COMPLICATIONS NO CHANGES. CARE ENDORSED TO RN FOR KIRIT
--- NOTE | 2017-04-15 19:30 | NUR ---
MS RN NOTES IN THE ROOM TALKING LOUD WITH ROOM MATE.ADVISED TO LOWER DOWN HIS VOICE AND HE LISTEN.
[2017-04-15 20:00] VITALS: BP 122/67
--- NOTE | 2017-04-15 20:03 | NUR ---
MS RN NOTES WENT DOWN TO SMOKE WITH FAMILY MEMBER,WILL COME BACK IN 15 MINUTES AND AND THEY WILL NOT GO DOWN AT 2030.
[2017-04-15] MEDS: LORAZEPAM 1 MG TABLET FOR AGITATION PO PRN (20:48)
--- NOTE | 2017-04-15 20:48 | NUR ---
MS RN NOTES DUE ATIVAN ADMINISTERED PER PATIENT REQUEST.PUT ON NPO AFTER 2100.
--- NOTE | 2017-04-15 21:00 | NUR ---
MS RN NOTES PER ,PATIENT DOES'NT PEE THAT MUCH SINCE THEY CAME IN THIS MORNING,DENIES PAIN ON HYPOGASTRIC AREA.NO BLADDER DISTENTION NOTED.WAS ABOUT TO DO BLADDER SCAN BUT REFUSED OR HOLD ON TO IT SINCE PATIENT ALREADY SLEEPING.
--- NOTE | 2017-04-15 21:30 | NUR ---
MS RN NOTES WENT DOWN TO SMOKE ACCOMPANIED BY AMAN BRANDT.
--- NOTE | 2017-04-15 22:10 | NUR ---
MS RN NOTES WENT DOWN TO THE NURSE STATION ASKING IF HE CAN GO TO SMOKE AND HE WAS TOLD THAT HE ALREADY WENT AT 2130,HE DENIES IT THAT HE WENT TO SMOKE AT THAT TIME,EVEN THE ROOMMATE ALREADY TESTIFY THAT THEY WENT ACCOMPANIED BY AMAN BRANDT.STILL HE DOESNT WANT TO LISTEN AND HE TALK LOUD TO THE NURSES AND NURSING EMPLOYMENT TRAINING SPECIALIST AT THE NURSING STATION.JUST TO MAKE HIM STOP,WE LET HIM SMOKE ACCOMPANIED BY SECURITY GUARDS AND AMAN BRANDT.HE PROMISED HE WILL NOT BOTHER ANYMORE.APPEARS DRUNK SINCE WAREHOUSE PACKER CAME,WE CHECK THE ROOM AND WE FOUND BOX OF ALVES BEER ALMOST GONE,3 BOTTLES UNOPENED AND 1 BOTTLE FOUND OPEN ON HIS BEDSIDE TABLE.NURSING EMPLOYMENT TRAINING SPECIALIST SEE HERSELF THE INCIDENT.
--- NOTE | 2017-04-15 22:20 | NUR ---
MS RN NOTES DR ZEE WAS CALLED TWICE BUT NO ANSWER.
--- NOTE | 2017-04-15 22:40 | NUR ---
MS RN NOTES CONTACTED LEONEL VIEIRA,ONE OF THE STAFF OF [facility] AND MADE AWARE OF PATIENT BEHAVIOR.
--- NOTE | 2017-04-16 | NUR ---
MS RN NOTES JUST FOUND OUT,PATIENT ORDERED PIZZA.INSTRUCTED THAT HE'S NOT SUPPOSED TO EAT AFTER MIDNIGHT FOR LAB DRAW TOMORROW MORNING,BUT STILL HE INSISTED HE WANTS TO EAT,THE HE'S HUNGRY. LEONEL VIEIRA NOTIFIED AND SHE SAID ITS OK,WILL DRAW BLOOD A LITTLE BIT LATE TOMORROW.
--- NOTE | 2017-04-16 | NUR ---
MS RN NOTES DR ZEE CALLED BACK,MADE AWARE OF PATIENT BEHAVIOR.HE SPOKE TO THE THE PATIENT AND WILL SEE PATIENT TOMORROW.
[2017-04-16] MEDS ORDERED: LORAZEPAM 1 MG TABLET ONE (00:29)
--- NOTE | 2017-04-16 00:30 | NUR ---
MS RN NOTES PATIENT APPROACH NURSING STATION,ASKING IF HE CAN GO DOWN TO SMOKE FOR JUST 5 MINUTES.WASNT ALLOWED AND HE START MAKING LOUD NOISE,BEGGING TO GO DOWN.DR MALLORY WAS CALLED AGAIN AND ORDERED OK TO GIVEN SLEEPING PILL OR ATIVAN AT THIS TIME.MADE AWARE THAT HE ALREADY GOT ONE EARLIER.
[2017-04-16] MEDS: LORAZEPAM 1 MG TABLET FOR INSOMNIA PO PRN (00:35)
--- NOTE | 2017-04-16 00:35 | NUR ---
MS RN NOTES OFFERED AMBIEN 5MG BUT REFUSED,PREFERS ATIVAN 1MG PO FOR SLEEP
--- NOTE | 2017-04-16 02:00 | NUR ---
MS RN NOTES IN THE ROOM,SLEEPING ON HIS BED
--- NOTE | 2017-04-16 06:21 | NUR ---
MS RN NOTES STILL SLEEPING.LAB DRAW TO BE DONE LATE,PATIENT ATE AFTER 2100,MD ZEE AWARE.WILL SEE PATIENT TODAY.WILL CONTINUE TO MONITOR BEHAVIOR.WILL ENDORSE TO DAY NURSE FOR KIRIT.
--- NOTE | 2017-04-16 07:00 | NUR ---
MS RN OPENING RECEIVED PATIENT A/OX4. DENIES SOB DIFFICULTY BREATHING OR PAIN AT THIS TIME. PATIENT EDUCATED ON HOSPITAL POLICY AND SMOKING POLICY DUE TO REPORTED NON COMPLIANCE. PATIENT IS PASSIVE WITH LISTENING. AWARE AND UPDATED ON NIGHT EVENTS. THEO UPDATED WELL AND CLARKE COOK RELIEF. MONITORING PATIENT CLOSELY.
[2017-04-16 08:00] VITALS: BP 103/52
[2017-04-16 08:14] VITALS: BP 103/52
--- NOTE | 2017-04-16 08:31 | NUR ---
MS RN NOTES PATIENT COMPLAINING OF HEADACHE. ASKING FOR TYLENOL AFTER HE COMES BACK FROM SMOKING
[2017-04-16] MEDS: INVEST MED MK-8189 MISC 3 TAB EA PO SCH (09:04)
[2017-04-16] MEDS: ACETAMINOPHEN ES 500 MG TABLET PO PRN (09:04)
[2017-04-16] MEDS: INVEST MED MK-8189 MISC 3 CAP EA PO SCH (09:04)
[2017-04-16 16:00] VITALS: BP 141/88
--- NOTE | 2017-04-16 18:57 | NUR ---
MS RN CLOSING PATIENT STABLE NO COMPLICATIONS NO CHANGES. ALL DUE MEDS GIVEN AND ALL NEEDS MET. CARE WILL BE ENDORSED TO FOR KIRIT.
[2017-04-16 20:00] VITALS: BP 117/59
[2017-04-16] MEDS: LORAZEPAM 1 MG TABLET FOR AGITATION PO PRN (21:33)
--- NOTE | 2017-04-17 06:19 | NUR ---
MS RN NOTES AWAKE & RESPONSIVE. NOT IN ANY DISTRESS. NO SOB NOTED. DENIES ANY PAIN OR DISCOMFORT AT THIS TIME. MONITORED ACCORDINGLY. 8 HOURS OF SLEEP. CALL LIGHT WITHIN REACH. BED IN LOWEST POSITION. SR UP X 2 FOR SAFETY. WILL ENDORSE TO NEXT SHIFT.
--- NOTE | 2017-04-17 07:37 | NUR ---
COOK TORTILLA RECEIVED PT IN BED AOX4 VS STABLE NO DISTRESS NOTED PT DENIES OF HURTING HIMSELF OR OTHERS AT THIS TIME, PT DENIES OF ANY AUDITORY, VISUAL HALLUCINATION WILL CONTINUE TO MONITOR.
[2017-04-17] MEDS: INVEST MED MK-8189 MISC 3 TAB EA PO SCH (07:55)
[2017-04-17] MEDS: INVEST MED MK-8189 MISC 3 CAP EA PO SCH (07:55)
[2017-04-17 08:00] VITALS: BP 137/79
[2017-04-17] MEDS: LORAZEPAM 1 MG TABLET FOR AGITATION PO PRN (15:43)
[2017-04-17 16:00] VITALS: BP 139/93
[2017-04-17 20:00] VITALS: BP 129/98
[2017-04-17] MEDS: LORAZEPAM 1 MG TABLET PO PRN (20:08)
--- NOTE | 2017-04-18 06:14 | NUR ---
MS RN NOTES AWAKE & RESPONSIVE. NOT IN ANY DISTRESS. NO SOB NOTED. DENIES ANY PAIN OR DISCOMFORT AT THIS TIME. MONITORED ACCORDINGLY. 7 HOURS OF SLEEP. CALL LIGHT WITHIN REACH. BED IN LOWEST POSITION. SR UP X 2 FOR SAFETY. WILL ENDORSE TO NEXT SHIFT.
[2017-04-18 08:23] VITALS: BP 111/81
[2017-04-18] MEDS: INVEST MED MK-8189 MISC 3 TAB EA PO SCH (08:23)
[2017-04-18] MEDS: INVEST MED MK-8189 MISC 3 CAP EA PO SCH (08:23)
[2017-04-18 10:00] VITALS: BP 111/81
[2017-04-18 16:00] VITALS: BP 124/70
--- NOTE | 2017-04-18 19:31 | NUR ---
RN MS NOTES PATIENT ALERT AND ORIENTED, NO DISTRESS NOTED, NO SOB, ALL NEEDS ATTENDED SAFETY MEASURES IN PLACED, CALL LIGHT WITHIN REACH, SEEN BY DR. ZEE, VISITED BY FAMILY MEMBERS, WILL ENDORSE TO FAMILY LAW ATTORNEY FOR KIRIT.
--- NOTE | 2017-04-18 19:40 | NUR ---
MSRN FULLY AWAKE, NO NEEDS FOR NOW.
[2017-04-18 20:00] VITALS: BP 134/71
--- NOTE | 2017-04-18 21:00 | NUR ---
MSRN CAME BACK FROM SMOKING, ACCPD BY STAFF. NO OTHER NEEDS MADE.
[2017-04-18] MEDS: LORAZEPAM 1 MG TABLET FOR INSOMNIA PO PRN (21:56)
[2017-04-18 22:00] VITALS: BP 134/71
--- NOTE | 2017-04-18 22:00 | NUR ---
MSRN APPEARS TO BE AGITATED, ATIVAN 1MG PO ADMINISTERED.
--- NOTE | 2017-04-19 01:06 | NUR ---
ELLE SLEEPS ON/OFF ASKING FOR 2 SANDWICH THIS TIME
--- NOTE | 2017-04-19 01:07 | NUR ---
MSRN SLEEPS ON AND OFF. ASKING FOR SANDWICH THIS TIME
--- NOTE | 2017-04-19 03:05 | NUR ---
MSRN STARTING TO GET SLEEPY.. SLEPT LATE.
--- NOTE | 2017-04-19 07:15 | NUR ---
MS RN INITIAL NOTE REPORT RECEIVED AT THE BEDSIDE. PATIENT IS SLEEPING. NO SOB OR DISTRESS NOTED AT THIS TIME. PATIENT DOES NOT APPEAR TO BE IN PAIN, NO FACIAL GRIMACE NOTED. BED IN A LOW POSITION, CALL LIGHT WITHIN PATIENT REACH. WILL CONTINUE TO MONITOR.
--- NOTE | 2017-04-19 07:29 | NUR ---
MSRN TOTAL HOURS OF SLEEP SINCE 7PM WAS ONLY 4HRS.
[2017-04-19 08:00] VITALS: BP 130/78
[2017-04-19] MEDS: INVEST MED MK-8189 MISC 3 CAP EA PO SCH (09:00)
[2017-04-19] MEDS: INVEST MED MK-8189 MISC 3 TAB EA PO SCH (09:00)
[2017-04-19 16:00] VITALS: BP 136/81
[2017-04-19] MEDS: LORAZEPAM 1 MG TABLET PO PRN (17:01)
--- NOTE | 2017-04-19 19:00 | NUR ---
MS RN CLOSING NOTES NO SIGNIFICANT CHANGES IN PATIENT CONDITION THROUGHOUT THE SHIFT. NO SOB OR DISTRESS NOTED AT THIS TIME. PATIENT DENIES PAIN. BED IN A LOW POSITION, CALL LIGHT WITHIN PATIENT REACH. WILL ENDORSE FOR KIRIT.
[2017-04-19 20:00] VITALS: BP 118/54
[2017-04-19] MEDS: LORAZEPAM 1 MG TABLET FOR INSOMNIA PO PRN (21:21)
[2017-04-20 08:00] VITALS: BP 126/71
[2017-04-20] MEDS: INVEST MED MK-8189 MISC 3 TAB EA PO SCH (09:16)
[2017-04-20] MEDS: INVEST MED MK-8189 MISC 3 CAP EA PO SCH (09:16)
[2017-04-20] MEDS: LORAZEPAM 1 MG TABLET PO PRN ×2 (11:52→18:12)
[2017-04-20 16:00] VITALS: BP 124/68
[2017-04-20 20:00] VITALS: BP_SYST 135; BP_DIAS 77; BP_DIAS 78
--- NOTE | 2017-04-20 20:00 | NUR ---
PATIENT PACING IN THE ROOM AND HALLWAY, TALKING ON THE PHONE, NO AGITATION, RESTLESS, REQUESTING TO BE TAKEN OUTSIDE TO SMOKE. NOT IN APPARENT DISTRESS, NO BEHAVIOR DISTURBANCE, WILL CONTINUE TO MONITOR.
--- NOTE | 2017-04-21 07:00 | NUR ---
PATIENT IN BED, ALERT AND AWAKE, NO SOB, NO DISTRESS, NO COMPLAIN OF PAIN, NO BEHAVIOR DISTURBANCE DURING SHIFT, SLEPT FOR 8 HOURS, ALL NEEDS ATTENDED, CALL LIGHT WITHIN REACH.
--- NOTE | 2017-04-21 07:55 | NUR ---
MS RN OPENING NOTES PATIENT RECEIVED IN BED AWAKE IN NO ACUTE SIGNS OF DISTRESS. ALERT AND ORIENTED X4, NO C/O PAIN OR DISCOMFORTS AT THIS TIME. ON ROOM AIR, BREATHING EVEN AND UNLABORED. CALL LIGHT WITHIN REACH, BED LOW AND LOCKED. WILL MAINTAIN ALL SAFETY MEASURES AND WILL CONTINUE TO MONITOR PT ACCORDINGLY.
[2017-04-21 08:00] VITALS: BP_SYST 135; BP_SYST 137; BP_DIAS 94
[2017-04-21] MEDS: LORAZEPAM 1 MG TABLET PO PRN ×2 (09:02→17:47)
--- NOTE | 2017-04-21 09:03 | NUR ---
RN NOTES PATIENT NOTED AGITATED, WALKING AROUND IN HIS ROOM. PRN ATIVAN 1MG GIVEN . WILL CONTINUE TO MONITOR.
[2017-04-21] MEDS: INVEST MED MK-8189 MISC 3 CAP EA PO SCH (09:42)
[2017-04-21] MEDS: INVEST MED MK-8189 MISC 3 TAB EA PO SCH (09:43)
[2017-04-21 16:00] VITALS: BP 113/72
--- NOTE | 2017-04-21 19:01 | NUR ---
MS RN CLOSING NOTES: PATIENT AWAKE AND RESTING IN BED. ALERT AND ORIENTED X4, VERBALLY RESPONSIVE. VISITED BY DR ZEE THIS AFTERNOON. ON ROOM AIR, BREATHING EVEN AND UNLABORED WITH NO SOB NOTED. BED LOCKED AND IN LOWEST POSITION, CALL LIGHT WITHIN REACH. ALL NEEDS AND CARE ATTENDED WELL. WILL ENDORSED TO PSYCHOLOGIST NURSE FOR KIRIT.
[2017-04-21 20:05] VITALS: BP 122/99
--- NOTE | 2017-04-22 03:00 | NUR ---
MS RN NOTE: PATIENT SLEEPING IN BED, NO ACUTE DISTRESS NOTED. BREATHING EVEN AND UNLABORED, NO SOB NOTED. BED LOCKED AND IN LOWEST POSITION, CALL LIGHT IN REACH. WILL CONTINUE TO MONITOR.
--- NOTE | 2017-04-22 06:20 | NUR ---
MS RN NOTE: PATIENT RESTING IN BED, NO ACUTE DISTRESS NOTED. BREATHING EVEN AND UNLABORED, NO SOB NOTED. PATIENT CALM AND COOPERATIVE. BED LOCKED AND IN LOWEST POSITION, CALL LIGHT IN REACH. WILL ENDORSE TO DAY NURSE TO CONTINUE WITH PLAN OF CARE.
[2017-04-22 08:00] VITALS: BP 131/79
--- NOTE | 2017-04-22 08:00 | NUR ---
MS 2 RN CLINICAL TRIAL NOTES PATIENT RESTING IN BED, NO ACUTE DISTRESS NOTED. BREATHING EVEN AND UNLABORED, NO SOB NOTED. PATIENT CALM AND COOPERATIVE. BED LOCKED AND IN LOWEST POSITION, CALL LIGHT IN REACH. WILL CONTINUE TO MONITOR.
[2017-04-22] MEDS: INVEST MED MK-8189 MISC 3 CAP EA PO SCH (09:07)
[2017-04-22] MEDS: INVEST MED MK-8189 MISC 3 TAB EA PO SCH (09:07)
[2017-04-22 16:00] VITALS: BP 126/78
[2017-04-22] MEDS: LORAZEPAM 1 MG TABLET PO PRN (17:20)
[2017-04-22 20:06] VITALS: BP 138/78
[2017-04-22] MEDS: LORAZEPAM 1 MG TABLET FOR INSOMNIA PO PRN (20:54)
--- NOTE | 2017-04-22 20:55 | NUR ---
MS RN NOTE: PATIENT REQUEST FOR ATIVAN FOR INSOMNIA BEFORE 2100 SINCE, MD ORDER TO HOLD ATIVAN AFTER 2100. ATIVAN 1MG ORAL GIVEN PER MD ORDER BEFORE 2100 HOUR. WILL CONTINUE TO MONITOR.
--- NOTE | 2017-04-23 06:15 | NUR ---
MS RN NOTE: PATIENT RESTING IN BED, NO ACUTE DISTRESS NOTED. BREATHING EVEN AND UNLABORED, NO SOB NOTED. PATIENT CALM AND COOPERATIVE. PATIENT SLEPT ABOUT 9 HOURS. BED LOCKED AND IN LOWEST POSITION, CALL LIGHT IN REACH. WILL ENDORSE TO DAY NURSE TO CONTINUE WITH PLAN OF CARE.
[2017-04-23 08:00] VITALS: BP 101/68
[2017-04-23] MEDS: INVEST MED MK-8189 MISC 3 TAB EA PO SCH (08:22)
[2017-04-23] MEDS: INVEST MED MK-8189 MISC 3 CAP EA PO SCH (08:22)
[2017-04-23] MEDS: LORAZEPAM 1 MG TABLET PO PRN (15:46)
[2017-04-23 16:00] VITALS: BP 102/58
--- NOTE | 2017-04-23 18:57 | NUR ---
PT IN HIS ROOM WITH VISITORS DUE TO HIS BDAY CELEBRATION.
--- NOTE | 2017-04-23 19:30 | NUR ---
RN NOTES RECEIVED PT WAS NOT ON HIS ROOM, ASKED THE MILITARY EQUIPMENT SPECIALIST TO GO DOWN TO SMOKING AREA TO CHECKED IF THE PATIENT IS THERE, PT. WAS THERE WITH HIS FAMILY AND WENT BACK TO HIS ROOM AFTER HE FINISHED HIS SMOKE
[2017-04-23 20:00] VITALS: BP 133/70
--- NOTE | 2017-04-23 22:45 | NUR ---
RN NOTES PT IS ACTING WEIRD AND WILL GIVE ATIVAN TO CALM HIM DOWN
[2017-04-23] MEDS: LORAZEPAM 1 MG TABLET FOR INSOMNIA PO PRN (22:53)
--- NOTE | 2017-04-23 22:56 | NUR ---
RN NOTES PT ASKED FOR SOMETHING TO SLEEP- ATIVAN 1 MG PO GIVEN ORDERED, V/S STABLE
--- NOTE | 2017-04-24 06:23 | NUR ---
RN NOTES SLEEPING BUT AROUSABLE, CALM, FOLLOW INSTRUCTION
[2017-04-24 08:00] VITALS: BP 110/77
--- NOTE | 2017-04-24 08:00 | NUR ---
MS RN NOTES PATIENT IN BED RESTING, WILL CONTINUE TO MONITOR.
[2017-04-24] MEDS: INVEST MED MK-8189 MISC 3 TAB EA PO SCH (09:16)
[2017-04-24] MEDS: INVEST MED MK-8189 MISC 3 CAP EA PO SCH (09:16)
[2017-04-24 16:00] VITALS: BP 137/87
--- NOTE | 2017-04-24 19:30 | NUR ---
RN NOTES WHEN MAKING ROUNDS FOR INITIAL ASSESSMENT, PT WAS NOT ON HIS ROOM, DAYSHIFT NURSE TOLD ME THE HE WENT DOWN WITH HIS FRIEND. WAITING FOR THE PT TO COME BACK
--- NOTE | 2017-04-24 19:50 | NUR ---
RN NOTES PT CAME BACK WITH HIS FRIEND, CALM AND FOLLOW INSTRUCTION
--- NOTE | 2017-04-24 19:50 | NUR ---
MS RN NOTES PATIENT IN BED RESTING. ALL DUE MEDICATIONS ADMINISTERED. ALL NEEDS MET. PATIENT COOPERATIVE. NOTED PATIENT GOING TO SMOKE MULTIPLE TIMES A DAY WITH FRIEND AND FAMILY.
[2017-04-24 20:00] VITALS: BP 152/74
--- NOTE | 2017-04-25 06:39 | NUR ---
RN NOTES SLEEPING BUT AROUSABLE, CALM AND FOLLOWS INSTRUCTION
[2017-04-25 08:00] VITALS: BP 119/80
--- NOTE | 2017-04-25 08:00 | NUR ---
MS RN NOTES PATIENT IN BED RESTING, WILL CONTINUE TO MONITOR.
[2017-04-25] MEDS: INVEST MED MK-8189 MISC 3 CAP EA PO SCH (08:54)
[2017-04-25] MEDS: INVEST MED MK-8189 MISC 3 TAB EA PO SCH (08:54)
[2017-04-25 16:00] VITALS: BP 140/94
[2017-04-25] MEDS: LORAZEPAM 1 MG TABLET PO PRN (17:59)
--- NOTE | 2017-04-25 18:00 | NUR ---
MS RN NOTES PATIENT SEEN AND EVALUATED BY DR. ZEE .
--- NOTE | 2017-04-25 18:55 | NUR ---
MS RN NOTES PATIENT IN BED RESTING, COOPERATIVE WILL ENDORSE TO PM SHIFT KIRIT.
[2017-04-25 20:00] VITALS: BP 124/72
[2017-04-26] MEDS: LORAZEPAM 1 MG TABLET FOR INSOMNIA PO PRN (00:04)
--- NOTE | 2017-04-26 00:15 | NUR ---
MS RN NOTE: PATIENT REQUEST FOR ATIVAN FOR INSOMNIA, ATIVAN 1MG ORAL GIVEN PER MD ORDER. WILL CONTINUE TO MONITOR.
--- NOTE | 2017-04-26 06:30 | NUR ---
MS RN NOTE: PATIENT RESTING IN BED, NO ACUTE DISTRESS NOTED. BREATHING EVEN AND UNLABORED, NO SOB NOTED. PATIENT CALM AND COOPERATIVE. PATIENT SLEPT ABOUT 7 HOURS. BED LOCKED AND IN LOWEST POSITION, CALL LIGHT IN REACH. WILL ENDORSE TO DAY NURSE TO CONTINUE WITH PLAN OF CARE.
--- NOTE | 2017-04-26 07:19 | NUR ---
MS RN OPENING NOTES: PATIENT RECEIVED AWAKE BED IN NO ACUTE SIGNS OF DISTRESS. ALERT AND ORIENTED X4, NO C/O PAIN OR DISCOMFORTS VOICED AT THIS TIME. ON ROOM AIR, RESPIRATION EVEN AND UNLABORED. BED LOCKED AND IN LOWEST POSITION, CALL LIGHT WITHIN REACH OF PT. WILL CONTINUE TO MONITOR ACCORDINGLY.
[2017-04-26 08:00] VITALS: BP 119/69
[2017-04-26] MEDS: INVEST MED MK-8189 MISC 3 TAB EA PO SCH (08:46)
[2017-04-26] MEDS: INVEST MED MK-8189 MISC 3 CAP EA PO SCH (08:46)
[2017-04-26] MEDS: LORAZEPAM 1 MG TABLET PO PRN ×3 (10:44→20:00)
--- NOTE | 2017-04-26 10:53 | NUR ---
RN NOTES PATIENT REQUESTED ATIVAN 1MG FOR AGITATION, PRN ATIVAN 1MG ORAL GIVEN PER MD ORDER. WILL CONTINUE TO MONITOR.
[2017-04-26 16:00] VITALS: BP 141/91
--- NOTE | 2017-04-26 18:37 | NUR ---
MS RN CLOSING NOTES: PATIENT RESTING IN BED ALERT AND ORIENTED X4. ON ROOM AIR, BREATHING EVEN AND UNLABORED WITH NO ACUTE SOB NOTED THROUGHOUT THE DAY. BED LOCKED AND IN LOWEST POSITION, CALL LIGHT WITHIN REACH OF PT. ALL NEEDS AND CARE ATTENDED WELL.WILL ENDORSED TO TURNING MACHINE SET UP OPERATOR NURSE FOR KIRIT.
[2017-04-26 20:00] VITALS: BP_SYST 149; BP_DIAS 94; BP_DIAS 96
--- NOTE | 2017-04-26 20:02 | NUR ---
RN NOTES COMPLAINED OF FEELING ANXIETY, ATIVAN 1 MG IV GIVEN ORDERED, V/S STABLE
--- NOTE | 2017-04-27 06:33 | NUR ---
RN NOTES SLEEPING BUT AROUSABLE, CALM AND FOLLOWS INSTRUCTION
--- NOTE | 2017-04-27 07:41 | NUR ---
RN NOTES PATIENT RECEIVED RESTING COMFORTABLY IN BED, ABLE TO MAKE NEEDS KNOWN. RESPIRATIONS EVEN AND UNLABORED. DENIES ANY PAIN OR DISCOMFORT AT THIS TIME, PATIENT CONTINUES ON CLINICAL TRIAL REGIME WITH NO ASE NOTED. KEPT CLEAN DRY AND INTACT, CALL LIGHT WITHIN EASY REACH WILL CONTINUE TO MONITOR
[2017-04-27 08:00] VITALS: BP 129/87
[2017-04-27] MEDS: INVEST MED MK-8189 MISC 3 TAB EA PO SCH (08:45)
[2017-04-27] MEDS: INVEST MED MK-8189 MISC 3 CAP EA PO SCH (08:45)
[2017-04-27] MEDS: LORAZEPAM 1 MG TABLET PO PRN (09:56)
--- NOTE | 2017-04-27 10:15 | NUR ---
RN NOTES PATIENT WENT OUT ON PASS WITH VISITOR OKAY PER DR. ZEE NOTED IN STABLE CONDITION WILL CONTINUE TO MONITOR UPON RETURN
--- NOTE | 2017-04-27 10:45 | NUR ---
RN NOTES PATIENT ASKED TO RETURN TO UNIT ONLY ON SMOKE BREAK STATES "NO I CAN BE HERE, I HAVE A VISITOR, THE DOCTOR SAID I CAN" PT APPROACHED IN CALM UNHURRIED MANNER, NURSING EDUCATION REINFORCED ON CONTINUED MONITORING WHILE ON TRIAL CONTINUES TO REFUSE TO RETURN WILL MAKE MD AWARE
--- NOTE | 2017-04-27 14:30 | NUR ---
RN NOTES PATIENT ASKED TO RETURN TO UNIT STATES "NO I CAN BE HERE, I HAVE A VISITOR, THE DOCTOR SAID I CAN" PT APPROACHED IN CALM UNHURRIED MANNER, NURSING EDUCATION REINFORCED ON CONTINUED MONITORING WHILE ON TRIAL CONTINUES TO REFUSE TO RETURN WILL MAKE MD AWARE
--- NOTE | 2017-04-27 14:40 | NUR ---
RN NOTES SECURITY CAME TO NOTIFY RN THAT PT IS DRINKING ALCOHOL IN SMOKING AREA AND STATES THAT PT SAID "IM NOT GOING TO GO RIGHT NOW, FORGET IT, THE DOCTOR SAID THAT I CAN BE OUT HERE WITH MY VISITOR AND I HAVE A VISITOR" CALLED MD WILL AWAIT CALL BACK
--- NOTE | 2017-04-27 14:50 | NUR ---
RN NOTES RECEIVED CALL BACK FROM DR. ZEE EXPLAINED NOTIFICATION FROM SECURITY OF PT DRINKING ALCOHOL IN SMOKING AREA AND NON COMPLIANCE WITH WANTING TO RETURN TO UNIT. DR. ZEE WILL CALL PATIENT PT CONTINUES TO REFUSE TO RETURN TO UNIT, WILL CONTINUE TO CARRY OUT MD ORDERS AND MONITOR UPON RETURN TO UNIT Addendum: 04/27/17 at 1643 by SHANIQUE HENRIQUEZ RN RN NOTES RN ALSO NOTIFIED OF PT SMOKING MARIJUANA IN SMOKING AREA BY SECURITY DR ZEE MADE AWARE, WILL CONTINUE TO MONITOR PT
--- NOTE | 2017-04-27 15:00 | NUR ---
RN NOTES PATIENT BACK ON UNIT, NURSING EDUCATION REINFORCED ON MD ORDERS AND SMOKE BREAKS, PT VERBALIZED UNDERSTANDING
--- NOTE | 2017-04-27 15:15 | NUR ---
RN NOTES PATIENT NOTED WITH SLIGHT SLURRED SPEECH DR. ZEE AWARE PT HAD BEEN DRINKING ALCOHOLIC BEVERAGES, PER MD CONTINUE TO MONITOR AT THIS TIME, WILL CONTINUE TO CARRY OUT ORDERS
[2017-04-27 16:00] VITALS: BP 125/75
--- NOTE | 2017-04-27 16:40 | NUR ---
RN NOTES NOTIFIED BY GEODETIC SURVEYOR OF SMELL OF MARIJUANA FROM PTS ROOM, WENT TO PTS ROOM WITH SCENT OF [place] NOTICEABLE, PT DOWN FOR A SMOKE AT THIS TIME WILL CONTINUE TO REINFORCE NURSING EDUCATION DR ZEE MADE AWARE AND WILL ADDRESS WITH PT
--- NOTE | 2017-04-27 18:20 | NUR ---
RN NOTES PAGED DR. ZEE PT REQUESTING PRN ATIVAN DOSE, PT STILL NOTED WITH SLIGHTLY SLURRED SPEECH AND UNSTEADY GAIT, PATIENT HAD BEEN DRINKING ALCOHOLIC BEVERAGES EARLIER IN THE DAY WILL AWAIT CALL BACK AND CONTINUE TO MONITOR ACCORDINGLY
--- NOTE | 2017-04-27 18:30 | NUR ---
RN NOTES RECEIVED CALL BACK FROM DR. ZEE MADE AWARE OF PT REQUESTING ATIVAN, REPORTED TO MD OF PATIENT'S STATE, MD STATES "I AGREE DO NOT GIVE ATIVAN AT THIS TIME, THAT IS NOT A GOOD COMBINATION, PLEASE CONTINUE TO MONITOR" PATIENT MADE AWARE WITH CONTINUED NURSING EDUCATION, WILL CONTINUE TO MONITOR ACCORDINGLY
--- NOTE | 2017-04-27 18:58 | NUR ---
RN NOTES PATIENT RESTING COMFORTABLY IN BED, ABLE TO MAKE NEEDS KNOWN. RESPIRATIONS EVEN AND UNLABORED. DENIES ANY PAIN OR DISCOMFORT AT THIS TIME, PATIENT CONTINUES ON CLINICAL TRIAL REGIME WITH NO ASE NOTED. MD MADE AWARE OF PT'S STATUS. KEPT CLEAN DRY AND INTACT, CALL LIGHT WITHIN EASY REACH WILL CONTINUE TO MONITOR AND ENDORSE TO NEXT SHIFT FOR CONTINUITY OF CARE
[2017-04-27 20:00] VITALS: BP 114/73
--- NOTE | 2017-04-28 06:55 | NUR ---
MS RN NOTE PATIENT STABLE. WILL ENDORSE TO DAY SHIFT FOR KIRIT.
--- NOTE | 2017-04-28 07:10 | NUR ---
MS RN OPENING RECEIVED PATIENT A/OX4. DENIES SOB DIFFICULTY BREATHING OR PAIN AT THIS TIME. PATIENT EDUCATED ON HOSPITAL POLICY AND SMOKING POLICY DUE TO REPORTED NON COMPLIANCE. PATIENT IS PASSIVE WITH LISTENING. THEO WARREN WELL AND CLARKE AD COPY WRITER. MONITORING PATIENT CLOSELY.
[2017-04-28 08:00] VITALS: BP 124/84
[2017-04-28] MEDS: INVEST MED MK-8189 MISC 3 CAP EA PO SCH (10:04)
[2017-04-28] MEDS: INVEST MED MK-8189 MISC 3 TAB EA PO SCH (10:04)
[2017-04-28] MEDS: LORAZEPAM 1 MG TABLET FOR AGITATION PO PRN ×2 (10:07→16:22)
[2017-04-28 16:00] VITALS: BP 136/93
--- NOTE | 2017-04-28 18:42 | NUR ---
MS RN CLOSING PATIENT STABLE NO COMPLICATIONS NO CHANGES. ALL DUE MEDS GIVEN AND ALL NEEDS MET. CARE WILL BE ENDORSED TO FOR KIRIT.
[2017-04-28 20:00] VITALS: BP 144/95
[2017-04-28 20:16] VITALS: BP 144/95
[2017-04-28] MEDS: LORAZEPAM 1 MG TABLET FOR INSOMNIA PO PRN (22:12)
--- NOTE | 2017-04-29 01:23 | NUR ---
MS RN NOTE RECEIVED PATIENT AWAKE AND ALERT IN ROOM. NO PAIN OR DISCOMFORT AT THIS TIME. NO SOB OR RESPIRATORY DISTRESS. BED LOCKED AND IN LOWEST POSITION. SIDE RAILS UP, CALL LIGHT WITHIN REACH. WILL CONTINUE TO MONITOR.
--- NOTE | 2017-04-29 06:20 | NUR ---
MS RN NOTE PATIENT STABLE. ALL NEEDS MET AND ATTENDED TO. WILL ENDORSE TO DAY SHIFT FOR KIRIT.
--- NOTE | 2017-04-29 07:05 | NUR ---
MS RN OPENING RECEIVED PATIENT A/OX4. DENIES SOB DIFFICULTY BREATHING OR PAIN AT THIS TIME. WILL ROUND Q2H OR LESS PER NEEDS.
[2017-04-29 08:00] VITALS: BP 123/69
[2017-04-29] MEDS: INVEST MED MK-8189 MISC 3 CAP EA PO SCH (09:16)
[2017-04-29] MEDS: INVEST MED MK-8189 MISC 3 TAB EA PO SCH (09:16)
[2017-04-29] MEDS: LORAZEPAM 1 MG TABLET FOR AGITATION PO PRN ×2 (10:11→17:44)
[2017-04-29 16:00] VITALS: BP 138/76
--- NOTE | 2017-04-29 18:52 | NUR ---
MS RN CLOSING PATIENT STABLE NO COMPLICATIONS NO CHANGES. ALL DUE MEDS GIVEN AND ALL NEEDS MET. CARE WILL BE ENDORSED TO FOR KIRIT.
[2017-04-29 20:00] VITALS: BP 134/86
[2017-04-29 20:26] VITALS: BP 134/86
[2017-04-29] MEDS: LORAZEPAM 1 MG TABLET PO PRN (21:55)
--- NOTE | 2017-04-30 06:30 | NUR ---
MS RN NOTE PATIENT STABLE. WILL ENDORSE TO DAY SHIFT FOR KIRIT.
--- NOTE | 2017-04-30 07:51 | NUR ---
RN MS NOTES PATIENT ALERT AND ORIENTED, VERY PLEASANT AND COOPERATIVE, NEEDS ATTENDED AND MET, NO BEHAVIORAL DISTURBANCE NOTED AT THIS TIME, SAFETY MEASURES IN PLACED, CALL LIGHT WITHIN REACH, WILL CONTINUE TO MONITOR.
[2017-04-30 08:00] VITALS: BP 133/87
[2017-04-30] MEDS: INVEST MED MK-8189 MISC 3 CAP EA PO SCH (09:08)
[2017-04-30] MEDS: INVEST MED MK-8189 MISC 3 TAB EA PO SCH (09:08)
--- NOTE | 2017-04-30 09:10 | NUR ---
RN MS NOTES RECEIVED ORDERS FROM DR. ZEE TO DISCHARGE THE PATIENT HOME AND FOR AN MRSA SWAB TEST FOR PROTOCOL, ORDER NOTED AND CARRIED OUT, PATIENT AWARE AND EXCITED TO GO HOME.
--- NOTE | 2017-04-30 09:32 | NUR ---
RN MS NOTES PATIENT RECEIVED DISCHARGE INSTRUCTIONS AND VERBALIZED UNDERSTANDING, NO NEW MEDICATIONS PRESCRIBED, SKIN ASSESSMENT, SKIN DRY AND INTACT, BELONGINGS RECONCILED, ALL NEEDS ATTENDED, DISCHARGE PAPERWORKS SIGNED, PATIENT WILL BE PICKED UP BY FAMILY MEMBERS.
--- NOTE | 2017-04-30 10:00 | NUR ---
RN MS NOTES PATIENT LEFT THE FACILITY IN STABLE CONDITION, PICKED UP BY FAMILY MEMBERS, ALL BELONGINGS BROUGHT HOME.
[2017-04-30] MEDS ORDERED: LORAZEPAM 1 MG TABLET FOR AGITATION PO PRN (12:00)
[2017-04-30] MEDS ORDERED: LORAZEPAM 1 MG TABLET FOR INSOMNIA PO PRN (22:00)
== END 2017-04-30 10:05 | disposition home or self-care (01) | DRG 951 ==
LOC: GPSOV2 12:52 → MEDSG2 13:13
PROVIDERS: ADMIT Psychiatry & Neurology Psychiatry; ATTEND Psychiatry & Neurology Psychiatry
DX: Z00.6 Encounter for examination for normal comparison and control in clinical research program (principal); F20.0 Paranoid schizophrenia; G47.00 Insomnia, unspecified; Z79.899 Other long term (current) drug therapy; Z82.49 Family history of ischemic heart disease and other diseases of the circulatory system
CPT/HCPCS: 87081-TC

== ENCOUNTER 2024-04-11 11:17 | Emergency (ER) | payer SELFPAY ==
[~2024-04-11] VITALS: Ht 170.2 cm; Wt 90.7 kg
[2024-04-11 12:24] VITALS: BP 138/90; TEMP 98.3; O2SAT 100
== END 2024-04-11 12:24 | disposition home or self-care (01) ==
LOC: ER 11:28
DX: F10.10 Alcohol abuse, uncomplicated (principal); I10 Essential (primary) hypertension; Z60.2 Problems related to living alone; Y90.0 Blood alcohol level of less than 20 mg/100 ml

== ENCOUNTER 2024-06-23 21:57 | Emergency (ER) | payer OTHER ==
[~2024-06-23] VITALS: Ht 167.6 cm; Wt 96.2 kg
[2024-06-23 23:31] VITALS: BP 139/104; TEMP 98; O2SAT 99
[2024-06-23] MEDS ORDERED: ONDANSETRON 4 MG TAB.RAPDIS ONE (23:48)
[2024-06-23] MEDS: ONDANSETRON 4 MG TAB.RAPDIS SL ONE (23:53)
[2024-06-24] MEDS ORDERED: HYDR-500 PO (06:22)
== END 2024-06-23 23:53 | disposition home or self-care (01) ==
LOC: ER 21:59
DX: R11.0 Nausea (principal); I10 Essential (primary) hypertension; Z91.011 Allergy to milk products
CPT/HCPCS: 99283; Q0162

== ENCOUNTER 2024-06-24 02:59 | Emergency (ER) | payer OTHER ==
[~2024-06-24] VITALS: Ht 167.6 cm; Wt 96.2 kg
[2024-06-24 05:22] VITALS: BP 165/107; TEMP 97.6; O2SAT 99
[2024-06-24] MEDS ORDERED: HYDR-500 PO (06:22)
== END 2024-06-24 06:35 | disposition home or self-care (01) ==
LOC: ER 03:05
DX: I10 Essential (primary) hypertension (principal); F41.9 Anxiety disorder, unspecified; Z91.011 Allergy to milk products

== ENCOUNTER 2024-06-28 14:36 | Emergency (ER) | payer OTHER ==
[~2024-06-28] VITALS: Ht 167.6 cm; Wt 95.3 kg
[~2024-06-28 14:36] MED LIST: HYDR-500 PO
[2024-06-28 16:00] VITALS: TEMP 98.5
[2024-06-28] MEDS ORDERED: dexaMETHasone SOD PHOSPHATE 4 MG/ML VIAL ONE (16:17)
[2024-06-28] MEDS: dexaMETHasone SOD PHOSPHATE 4 MG/ML VIAL IM ONE (16:18)
[2024-06-28] MEDS ORDERED: ACETAMINOPHEN ES 500 MG TABLET ONE (16:18)
[2024-06-28] MEDS ORDERED: hydrOXYzine 10 MG TABLET ONE (16:18)
[2024-06-28] MEDS: ACETAMINOPHEN ES 500 MG TABLET PO ONE (16:20)
[2024-06-28] MEDS: hydrOXYzine 10 MG TABLET PO ONE (16:20)
[2024-06-28 17:46] VITALS: BP 125/80; O2SAT 99
== END 2024-06-28 17:44 | disposition home or self-care (01) ==
LOC: ER 14:39
DX: J02.9 Acute pharyngitis, unspecified (principal); R51.9 Headache, unspecified; F41.9 Anxiety disorder, unspecified; R13.0 Aphagia; I10 Essential (primary) hypertension; Z91.011 Allergy to milk products; Z20.822 Contact with and (suspected) exposure to COVID-19
CPT/HCPCS: 99283; 87426; 96372; 87070; 87880; J1100; Q0177; 86403-TC

== ENCOUNTER 2024-07-01 10:45 | Emergency (ER) | payer OTHER ==
[~2024-07-01] VITALS: Ht 167.6 cm; Wt 95.3 kg
[2024-07-01] MEDS ORDERED: LIDOCAINE VISCOUS 2% UD 15 ML UDC ONE (11:08)
[2024-07-01] MEDS ORDERED: MAG HYDROX/AL HYDROX/SIMETH 30 ML UDC ONE (11:08)
[2024-07-01] MEDS ORDERED: LORAZEPAM 0.5 MG TABLET ONE (11:09)
[2024-07-01] MEDS: LIDOCAINE VISCOUS 2% UD 15 ML UDC MM ONE (11:14)
[2024-07-01] MEDS: LORAZEPAM 1 MG TABLET PO ONE (11:14)
[2024-07-01] MEDS: MAG HYDROX/AL HYDROX/SIMETH 30 ML UDC PO ONE (11:14)
[2024-07-01 11:25] LABS: BASOPHILS # (AUTO) 0.1 K/uL (0.0-0.2); BASOPHILS % (AUTO) 0.8 % (0.0-2.0); EOSINOPHILS % (AUTO) 0.5 % (0.0-6.0); HEMATOCRIT 38 % (39-51); HEMOGLOBIN 12.3 g/dL (13.5-17.5); LYMPHOCYTES # (AUTO) 1.6 K/uL (0.8-4.8); MEAN CORPUSCULAR HEMOGLOBIN 29 PG (26.0-33.0); MEAN CORPUSCULAR HGB CONC 33 g/dl (31.0-36.0); MEAN CORPUSCULAR VOLUME 89 fL (80-96); MONOCYTES # (AUTO) 0.6 K/uL (0.1-1.30); MONOCYTES % (AUTO) 6.6 % (2.0-12.0); NEUTROPHILS # (AUTO) 6.4 K/uL (1.8-8.9); NEUTROPHILS % (AUTO) 74.1 % (43.0-81.0); PLATELET COUNT (AUTO) 365 K/uL (150-450); RED BLOOD CELL COUNT(AUTO) 4.26 MIL/uL (4.5-6.0); RED CELL DISTRIBUTION WIDTH 13.7 % (11.5-15.0); WHITE BLOOD COUNT (AUTO) 8.6 K/uL (4.3-11.0)
[2024-07-01 11:35] LABS: CALCIUM, SERUM 8.8 mg/dL (8.5-10.1); CARBON DIOXIDE 24 mmol/L (21-32); CHLORIDE 104 mmol/L (98-107); CREATININE 0.7 mg/dL (0.6-1.3); GLUCOSE 118 mg/dL (74-106); POTASSIUM 3.6 mmol/L (3.5-5.1); SODIUM SERUM 138 mmol/L (136-145); UREA NITROGEN, BLOOD 7 mg/dL (7-18)
[2024-07-01 12:22] VITALS: BP 123/77; TEMP 98.6; O2SAT 99
== END 2024-07-01 12:22 | disposition home or self-care (01) ==
LOC: ER 10:57
DX: F41.1 Generalized anxiety disorder (principal); R07.9 Chest pain, unspecified; R51.9 Headache, unspecified; I10 Essential (primary) hypertension; Z91.011 Allergy to milk products
CPT/HCPCS: 36415; 71045-TC; 80048-TC; 84484-TC; 85025-TC

== ENCOUNTER 2024-07-03 10:52 | Emergency (ER) | payer OTHER ==
[~2024-07-03] VITALS: Ht 167.6 cm; Wt 95.3 kg
[2024-07-03 11:02] VITALS: BP 150/89; TEMP 97.9; O2SAT 99
[2024-07-03] MEDS ORDERED: ACETAMINOPHEN 325 MG TABLET ONE (11:59)
[2024-07-03] MEDS: ACETAMINOPHEN 325 MG TABLET PO ONE (12:00)
[2024-07-04] MEDS ORDERED: TYL2T PO (22:43)
[2024-07-04] MEDS ORDERED: PRED50TA PO (22:43)
[2024-07-04] MEDS ORDERED: BENZ1LOZ58 PO (22:43)
== END 2024-07-03 12:01 | disposition home or self-care (01) ==
LOC: ER 11:01
DX: F10.10 Alcohol abuse, uncomplicated (principal); F41.9 Anxiety disorder, unspecified; R51.9 Headache, unspecified; R07.0 Pain in throat; I10 Essential (primary) hypertension; E86.0 Dehydration; Z91.011 Allergy to milk products; Y90.9 Presence of alcohol in blood, level not specified

== ENCOUNTER 2024-07-04 18:27 | Emergency (ER) | payer OTHER ==
[~2024-07-04] VITALS: Ht 167.6 cm; Wt 95.3 kg
[2024-07-04] MEDS ORDERED: dexaMETHasone SOD PHOSPHATE 1 ML ONE (22:40)
[2024-07-04] MEDS ORDERED: BENZ1LOZ58 PO (22:43)
[2024-07-04] MEDS ORDERED: PRED50TA PO (22:43)
[2024-07-04] MEDS ORDERED: TYL2T PO (22:43)
[2024-07-04 22:47] VITALS: BP 145/89; TEMP 98.5; O2SAT 99
[2024-07-04] MEDS: dexaMETHasone SOD PHOSPHATE 10 MG/ML VIAL IM ONE (22:47)
== END 2024-07-04 22:48 | disposition home or self-care (01) ==
LOC: ER 18:27
DX: J02.9 Acute pharyngitis, unspecified (principal); I10 Essential (primary) hypertension; F41.9 Anxiety disorder, unspecified; F19.10 Other psychoactive substance abuse, uncomplicated; Z91.011 Allergy to milk products
CPT/HCPCS: 99283; 96372; 87070; 87880; J1100; 86403-TC

== ENCOUNTER 2024-07-05 17:48 | Emergency (ER) | payer OTHER ==
[~2024-07-05] VITALS: Ht 170.2 cm; Wt 91.2 kg
[~2024-07-05 17:48] MED LIST changes: +BENZ1LOZ58 PO; +PRED50TA PO; +TYL2T PO
[2024-07-05] MEDS: IBUPROFEN 600 MG TABLET PO ONE (19:30)
[2024-07-05 19:35] LABS: BASOPHILS % (AUTO) 0.1 % (0.0-2.0); HEMATOCRIT 39 % (39-51); HEMOGLOBIN 12.9 g/dL (13.5-17.5); LYMPHOCYTES # (AUTO) 1.1 K/uL (0.8-4.8); LYMPHOCYTES % (AUTO) 9.2 % (20.0-44.0); MEAN CORPUSCULAR HEMOGLOBIN 30 PG (26.0-33.0); MEAN CORPUSCULAR HGB CONC 33 g/dl (31.0-36.0); MEAN CORPUSCULAR VOLUME 89 fL (80-96); MONOCYTES # (AUTO) 0.7 K/uL (0.1-1.30); MONOCYTES % (AUTO) 5.3 % (2.0-12.0); NEUTROPHILS # (AUTO) 10.6 K/uL (1.8-8.9); NEUTROPHILS % (AUTO) 85.4 % (43.0-81.0); PLATELET COUNT (AUTO) 394 K/uL (150-450); RED BLOOD CELL COUNT(AUTO) 4.36 MIL/uL (4.5-6.0); RED CELL DISTRIBUTION WIDTH 13.7 % (11.5-15.0); WHITE BLOOD COUNT (AUTO) 12.4 K/uL (4.3-11.0)
[2024-07-05 20:01] LABS: ALBUMIN 3.7 g/dL (3.4-5.0); BILIRUBIN,TOTAL 0.5 mg/dL (0.2-1.0); CALCIUM, SERUM 9.6 mg/dL (8.5-10.1); CREATININE 0.7 mg/dL (0.6-1.3); POTASSIUM 3.8 mmol/L (3.5-5.1); TOTAL PROTEIN, SERUM 7.4 g/dL (6.4-8.2)
[2024-07-05 20:12] LABS: ALCOHOL, BLOOD < 3 mg/dL (0-10)
[2024-07-05 20:13] LABS: ACETAMINOPHEN 0 ug/ml (10-30); SALICYLATE 0.8 mg/dL (2.8-20.0)
[2024-07-05] MEDS ORDERED: IBUPROFEN 600 MG TABLET ONE (20:41)
[2024-07-05 21:20] VITALS: BP 142/92; TEMP 98.1; O2SAT 99
== END 2024-07-05 20:45 | disposition home or self-care (01) ==
LOC: ER 17:50
DX: D72.829 Elevated white blood cell count, unspecified (principal); I10 Essential (primary) hypertension; F41.9 Anxiety disorder, unspecified; Z13.9 Encounter for screening, unspecified; Z98.890 Other specified postprocedural states
CPT/HCPCS: 36415; 80053-TC; 85025-TC; G0480

== ENCOUNTER 2024-07-22 20:09 | Emergency (ER) | payer OTHER ==
[~2024-07-22] VITALS: Ht 170.2 cm; Wt 104.3 kg
[2024-07-22 21:25] LABS: BASOPHILS # (AUTO) 0.1 K/uL (0.0-0.2); BASOPHILS % (AUTO) 0.8 % (0.0-2.0); EOSINOPHILS # (AUTO) 0.1 K/uL (0.0-0.7); EOSINOPHILS % (AUTO) 0.8 % (0.0-6.0); HEMATOCRIT 39 % (39-51); HEMOGLOBIN 12.9 g/dL (13.5-17.5); LYMPHOCYTES # (AUTO) 1.9 K/uL (0.8-4.8); LYMPHOCYTES % (AUTO) 19.1 % (20.0-44.0); MEAN CORPUSCULAR HEMOGLOBIN 30 PG (26.0-33.0); MEAN CORPUSCULAR HGB CONC 34 g/dl (31.0-36.0); MEAN CORPUSCULAR VOLUME 88 fL (80-96); MONOCYTES # (AUTO) 0.5 K/uL (0.1-1.30); MONOCYTES % (AUTO) 5.2 % (2.0-12.0); NEUTROPHILS # (AUTO) 7.3 K/uL (1.8-8.9); NEUTROPHILS % (AUTO) 74.1 % (43.0-81.0); PLATELET COUNT (AUTO) 348 K/uL (150-450); RED BLOOD CELL COUNT(AUTO) 4.37 MIL/uL (4.5-6.0); RED CELL DISTRIBUTION WIDTH 13.4 % (11.5-15.0); WHITE BLOOD COUNT (AUTO) 9.8 K/uL (4.3-11.0)
[2024-07-22 21:44] LABS: CALCIUM, SERUM 9.1 mg/dL (8.5-10.1); CREATININE 1.1 mg/dL (0.6-1.3); POTASSIUM 3.5 mmol/L (3.5-5.1)
[2024-07-22] MEDS: ACETAMINOPHEN 325 MG TABLET PO ONE (22:14)
[2024-07-23 00:13] VITALS: BP 120/89; TEMP 98.2; O2SAT 99
== END 2024-07-22 23:00 | disposition home or self-care (01) ==
LOC: ER 20:14
DX: R06.02 Shortness of breath (principal); R51.9 Headache, unspecified; H57.89 Other specified disorders of eye and adnexa; R42 Dizziness and giddiness; R63.0 Anorexia; R22.1 Localized swelling, mass and lump, neck; I10 Essential (primary) hypertension; F41.9 Anxiety disorder, unspecified; Z79.52 Long term (current) use of systemic steroids; Z79.899 Other long term (current) drug therapy
CPT/HCPCS: 36415; 80048-TC; 85025-TC

== ENCOUNTER 2024-07-28 12:09 | Emergency (ER) | payer OTHER ==
[~2024-07-28] VITALS: Ht 170.2 cm; Wt 93.0 kg
[2024-07-28 12:57] VITALS: BP 142/86; TEMP 98.2; O2SAT 99
== END 2024-07-28 12:40 | disposition home or self-care (01) ==
LOC: ER 12:17
DX: M25.512 Pain in left shoulder (principal); M54.2 Cervicalgia; I10 Essential (primary) hypertension; F41.9 Anxiety disorder, unspecified; F19.10 Other psychoactive substance abuse, uncomplicated; Z91.011 Allergy to milk products; Z79.52 Long term (current) use of systemic steroids

== ENCOUNTER 2024-07-28 12:52 | Emergency (ER) | payer OTHER ==
[~2024-07-28] VITALS: Ht 170.2 cm; Wt 93.0 kg
[2024-07-28 12:54] VITALS: BP 142/86; TEMP 98.6
[2024-07-28 15:34] VITALS: O2SAT 99
== END 2024-07-28 15:35 | disposition home or self-care (01) ==
LOC: ER 12:55
DX: M25.512 Pain in left shoulder (principal); I10 Essential (primary) hypertension; F41.9 Anxiety disorder, unspecified; F19.10 Other psychoactive substance abuse, uncomplicated; Z91.011 Allergy to milk products

== ENCOUNTER 2024-08-13 07:11 | Emergency (ER) | payer OTHER ==
[~2024-08-13] VITALS: Ht 170.2 cm; Wt 93.4 kg
[2024-08-13 07:29] VITALS: BP 136/75; TEMP 98.4; O2SAT 99
[2024-08-13] MEDS ORDERED: ONDA4TAB5 PO (07:40)
[2024-08-13] MEDS ORDERED: ONDANSETRON 4 MG TAB.RAPDIS ONE (07:51)
[2024-08-13] MEDS: ONDANSETRON 4 MG TAB.RAPDIS SL ONE (07:53)
== END 2024-08-13 07:53 | disposition home or self-care (01) ==
LOC: ER 07:13
DX: J02.0 Streptococcal pharyngitis (principal); R11.0 Nausea; R51.9 Headache, unspecified; F41.9 Anxiety disorder, unspecified; I10 Essential (primary) hypertension; K21.9 Gastro-esophageal reflux disease without esophagitis; Z79.52 Long term (current) use of systemic steroids
CPT/HCPCS: 99283; Q0162

== ENCOUNTER 2025-02-13 19:49 | Emergency (ER) | payer OTHER ==
[~2025-02-13] VITALS: Ht 167.6 cm; Wt 89.8 kg
[~2025-02-13 19:49] MED LIST changes: +ONDA4TAB5 PO
[2025-02-13 20:03] VITALS: TEMP 98
[2025-02-13] MEDS ORDERED: CYCLOBENZAPRINE 10 MG TABLET ONE (20:16)
[2025-02-13] MEDS ORDERED: IBUPROFEN 600 MG TABLET ONE (20:16)
[2025-02-13] MEDS: IBUPROFEN 600 MG TABLET PO ONE (20:20)
[2025-02-13] MEDS: CYCLOBENZAPRINE 10 MG TABLET PO ONE (20:20)
[2025-02-13 22:11] VITALS: BP 125/80; O2SAT 97
== END 2025-02-13 22:09 | disposition home or self-care (01) ==
LOC: ER 19:50
DX: R51.9 Headache, unspecified (principal); M54.2 Cervicalgia; M79.641 Pain in right hand; F41.9 Anxiety disorder, unspecified; I10 Essential (primary) hypertension; F19.10 Other psychoactive substance abuse, uncomplicated; Z91.011 Allergy to milk products; V48.2XXA Person on outside of car injured in noncollision transport accident in nontraffic accident, initial encounter; Y93.89 Activity, other specified; Y92.89 Other specified places as the place of occurrence of the external cause; Y99.8 Other external cause status
CPT/HCPCS: 70450-TC; 72125-TC; 73130-TC

== ENCOUNTER 2025-10-04 18:34 | Emergency (ER) | payer OTHER ==
[~2025-10-04] VITALS: Ht 165.1 cm; Wt 89.8 kg
[2025-10-04 18:38] VITALS: BP 144/88; TEMP 98.4; O2SAT 98
[2025-10-04] MEDS ORDERED: IBUP-1490 PO (19:39)
[2025-10-04] MEDS ORDERED: ACET-2605 PO (19:39)
[2025-10-04] MEDS ORDERED: KETOROLAC TROMETHAMINE 15 MG/ML VIAL ONE (19:46)
[2025-10-04] MEDS: KETOROLAC TROMETHAMINE 15 MG/ML VIAL IM ONE (19:50)
== END 2025-10-04 20:28 | disposition home or self-care (01) ==
LOC: ER 18:45
DX: R09.89 Other specified symptoms and signs involving the circulatory and respiratory systems (principal); J02.9 Acute pharyngitis, unspecified; I10 Essential (primary) hypertension; F41.9 Anxiety disorder, unspecified; Z79.52 Long term (current) use of systemic steroids
CPT/HCPCS: 99283; 96372; J1885; J8540